=== PATIENT | male | born 1980 | race Caucasian/White ===

== ENCOUNTER 2023-02-02 14:21 | Outpatient (REF) | payer MEDICAID, SELFPAY ==
[2023-02-02 16:07] LABS: MANUAL DIFF FLAG NO
[2023-02-02 16:24] LABS: Basophils Percent Auto 0.5 % (0-2); Eosinophils Absolute Auto 0.2 X10*3/uL (0.0-0.4); Eosinophils Percent Auto 3.4 % (0-4); Hemoglobin 11.1 g/dl (14.0-18.0); Imm Gran Abs Auto 0.03 X10*3/uL (0.00-0.03); Imm Gran Pct Auto 0.5 % (0.0-0.4); Immature Retic Fraction 28.9 % (2.3-13.4); Lymphocytes Absolute Auto 1.1 X10*3/uL (1.2-4.9); Lymphocytes Percent Auto 19.2 % (20-40); Mean Corpuscular HGB Conc 30.8 g/dl (31.0-36.0); Mean Corpuscular Hemoglobin 23.8 pg (27.0-33.0); Mean Corpuscular Volume 77.3 fL (80.0-98.0); Mean Platelet Volume 11.3 fL (9.4-12.4); Monocytes Absolute Auto 0.7 X10*3/uL (0.1-1.2); Monocytes Percent Auto 11.7 % (2-11); Neutrophils Absolute Auto 3.8 x10*3/uL (2.0-8.3); Neutrophils Percent Auto 64.7 % (45-73); Platelet Count 171 X10*3/uL (160-400); Red Blood Count 4.66 X10*6/uL (4.60-5.80); Red Cell Distribution Width 16.6 % (11.0-16.0); Reticulocyte Percent 1.7 % (0.5-1.8); Reticulocytes Absolute 0.078 X10*6/uL (0.026-0.095); White Blood Count 5.8 X10*3/uL (4.8-10.8)
[2023-02-02 16:28] LABS: INTERNATIONAL NORM RATIO 0.9 (0.9-1.1)
[2023-02-02 17:30] LABS: Folate 13.5 ng/mL (> or = 4.0); Vitamin B12 665 pg/mL (200-900)
[2023-02-02 18:57] LABS: CT PCR NOT DETECTED (Not Detect.); NG PCR NOT DETECTED (Not Detect.)
[2023-02-02 19:26] LABS: Alanine Aminotransferase 31 U/L (0-40); Albumin Level 3.5 g/dL (3.5-5.0); Alkaline Phosphatase 77 U/L (39-117); Anion Gap 13 (12-20); Aspartate Amino Transferase 36 U/L (5-37); Bilirubin Total 0.3 mg/dL (0.0-1.0); Blood Urea Nitrogen 9 mg/dL (9-16); Calcium 8.9 mg/dL (8.4-10.2); Carbon Dioxide 27 mmol/L (22-29); Chloride 107 mmol/L (96-108); Estimated Glomerular Filt Rate > 60; Glucose Random 114 mg/dL (60-115); Iron 30 mcg/dL (45-160); Percent Iron Saturation 11 % (15-50); Potassium 3.5 mmol/L (3.3-5.1); Sodium 143 mmol/L (135-145); Total Iron Binding Capacity 272 mcg/dL (228-428); Total Protein 6.6 g/dL (6.5-8.0); Unsaturated Iron Binding 242 ug/dL
[2023-02-02 19:39] LABS: Ferritin 52 ng/mL (20-250)
[2023-02-03 09:14] LABS: Hepatitis A Antibody IgG REACTIVE (Nonreactive); ~Hepatitis A Antibody IgG 1.02 S/CO (0.00-0.99)
[2023-02-03 09:27] LABS: Syphilis Screen Nonreactive (Nonreactive)
[2023-02-03 09:35] LABS: HBS Num1 0.18 mIU/mL (0-7.99); HBc Num1 0.15 S/CO (0.00-0.79); HBsAGNum1 0.35 S/CO (0.00-0.99); HIV AB/AG Nonreactive (Nonreactive); HIV Num 1 0.05 S/CO (0.00-0.99); Hepatitis B Core Antibody Nonreactive (Nonreactive); Hepatitis B Surface Antigen Negative (Negative); ~Hepatitis B Surface Antibody NONREACTIVE (Nonreactive)
[2023-02-03 09:47] LABS: ~HepC Num1 0.22 S/CO (0.00-0.79); ~Hepatitis C Antibody Nonreactive (Nonreactive)
[2023-02-06 11:03] LABS: TS Negative Control Passed; TS Panel A 0; TS Panel B 2; TS Positive Control Passed; TSpotTB Negative (Negative)
== END 2023-02-02 14:22 | disposition home or self-care (01) ==
LOC: HO.HHCL 14:21
PROVIDERS: Visit Provider Emergency Medicine
DX: F11.20 Opioid dependence, uncomplicated (principal); Z20.2 Contact with and (suspected) exposure to infections with a predominantly sexual mode of transmission
CPT/HCPCS: 0353U; 80053; 82607; 82728; 82746; 83540; 85025; 85045; 85610; 86481; 86704; 86706; 86708; 86780; 86803; 87340; 87389

== ENCOUNTER 2023-08-29 16:39 | Emergency (ER) | payer MEDICAID, SELFPAY ==
--- NOTE | ~2023-08-29 | CT_ITS ---
EXAMINATION: CT HEAD WITHOUT CONTRAST CT CERVICAL SPINE WITHOUT CONTRAST CLINICAL INFORMATION: Headache. Neck pain. Hypertension. COMPARISON: None TECHNIQUE: Contiguous axial imaging was performed from the skull base to vertex without intravenous administration of contrast. Contiguous axial imaging was performed from the upper chest through the skull base without intravenous administration of contrast. Coronal and sagittal reformats were obtained at the acquisition workstation. This CT examination was performed using dose optimization techniques as appropriate, variously including the following: *Automated exposure control. *Adjustment of mA and/or kV according to patient size (this includes techniques or standardized protocols for targeted exams where dose is matched to indication/reason for exam, i.e., extremities or head). *Use of iterative reconstruction technique. DLP: 800 mGy-cm FINDINGS: Head: There is no evidence of acute intracranial hemorrhage or edematous territorial infarction. Ramirez-white matter differentiation is preserved. There is no abnormal attenuation within the brain parenchyma. The ventricles are normal in morphology and size. No evidence for obstructive hydrocephalus. No abnormal mass effect or midline shift. No extra-axial fluid collections. Remote appearing deformity of the right nasal bone. No acute soft tissue or osseous abnormalities. The mastoid air cells and paranasal sinuses are clear. Cervical Spine: The atlantooccipital and atlantoaxial articulations remain well aligned. Straightening of the normal cervical lordosis. Otherwise, there is anatomic alignment of the vertebral bodies and posterior elements. No evidence of acute fracture or subluxation. The vertebral body heights are maintained. Mild intervertebral disc space narrowing at C5-C6. Mild facet arthropathy at C5-C6 There is no prevertebral soft tissue swelling. The thyroid gland and remaining cervical soft tissues are within normal limits. The lung apices demonstrate no abnormalities. CT/CT cervical spine wo IV con IMPRESSION: 1. No acute intracranial pathology. 2. No acute fracture or traumatic subluxation involving the cervical spine. Mild degenerative changes at C5-C6.
[2023-08-29 17:33] VITALS: BP 196/135; PULSE 84; RESP 20; TEMP 36.8; O2SAT 95; BMI 45.6
--- NOTE | 2023-08-29 17:34 | ED_ITS ---
HPI - General Adult General Chief complaint: Headache Stated complaint: sent by [facility] for high BP Time Seen by Provider: 08/29/23 19:52 Source: patient Mode of arrival: ambulatory Limitations: no limitations History of Present Illness HPI narrative: 43-year-old male history of hypertension noncompliant with meds presents to ED for headache since Sunday. Patient went to primary care provider who found patient to have elevated blood pressure systolic about 200. Patient states has not taken his lisinopril since last year. Patient denies any chest pain, shortness of breath, slurred speech, facial droop, paralysis of extremities, or loss of vision. Patient denies any dizziness. Related Data Previous Rx's ?Medication ?Instructions ?Recorded hydrochlorothiazide 25 mg tablet 25 mg PO DAILY 30 days #30 tabs 08/30/23 lisinopril 10 mg tablet 20 mg (2 x 10 mg) PO BID 30 days 08/30/23 #120 tabs Allergies Allergy/AdvReac Type Severity Reaction Status Date / Time No Known Allergies Allergy Unverified 02/12/20 19:50 [No Known Allergies*] Review of Systems 2 Review of Systems: Headache elevated blood pressure Yes all other systems are reviewed and are negative [facility] Social History Social History Smoked in Last 30 Days: Yes Use of substances other than those prescribed or required for medical reasons: No Advance Directives: No Advance Directives Information Provided: No Physical Exam ED Vital Signs: Vital Signs - 24 hr 08/29/23 17:33 08/29/23 19:53 08/29/23 21:14 Temperature 98.2 F 98.9 F 98.0 F Pulse Rate 84 99 89 Respiratory Rate 20 18 20 Blood Pressure 196/135 H 195/119 H 163/98 H Pulse Oximetry 95 96 95 Oxygen Delivery Method Room Air Room Air Room Air 08/30/23 00:43 08/30/23 01:26 Temperature 98.3 F 98.0 F Pulse Rate 66 68 Respiratory Rate 18 18 Blood Pressure 161/110 H 152/98 H Pulse Oximetry 94 98 Oxygen Delivery Method Room Air Room Air BMI result Body Mass Index 45.6 Const General: cooperative, healthy appearing, comfortable, no acute distress, well developed, alert, awake and Physically active Orientation/consciousness: oriented to person, oriented to place, oriented to time and patient oriented x3 HENMT Head: Yes normal to inspection, Yes No palpable skull fracture present, Yes normocephalic, Yes atraumatic and No abrasion Eyes General: appearance normal, both eyes and all related structures Neck Neck: Yes normal visual inspection, Yes full ROM, Yes no lymphadenopathy, Yes no meningeal signs, Yes trachea midline, Yes supple, No anterior neck swelling and No tender Chest Chest palpation & inspection: normal inspection of the chest and normal palpation of entire chest wall Resp Effort & Inspection: normal respiratory effort and able to speak in complete sentences Auscultation: clear to auscultation bilaterally Cardio Jugular venous distension: no JVD Heart sounds: S1 normal heart sound present and S2 normal heart sound present GI Inspection: Yes normal to inspection Palpation (GI): Soft to palpation, not firm, nontender, no guarding and not rigid General: No CVA tenderness and Yes no CVA tenderness Back/Spine/Pelvis Back: no CVA tenderness, No CVA tenderness and No back tenderness Skin General skin exam: no rashes or lesions noted, elasticity normal and turgor normal Neuro General: oriented to person, oriented to place, oriented to time, patient oriented x3, gait normal, tone normal, moves all extremities, Normal light touch and pain sensation, no meningeal signs, no focal motor deficits, CN's II-XI intact bilaterally and normal sensation to monofilament NIH Stroke Scale Internal: Initial- Upon Arrival Level of Consciousness: Alert Level of Consciousness Questions: Answers both questions correctly Level of Consciousness Commands: Performs both tasks correctly Best Gaze: Normal Visual: No visual loss Facial Palsy: Normal Motor Arm (Right): No drift Motor Arm (Left): No drift Motor Leg (Right): No drift Motor Leg (Left): No drift Limb Ataxia: Absent Sensory: Normal Best Language: No aphasia Dysarthia: Normal Extinction and Inattention: No abnormality Score: 0 Course Course Course Narrative: This is an RME: Additional HPI, ROS, PE not included below will be deferred to primary provider. This is a [id number], with a hx of HTN, presenting to the ER with complaints of headache and HTN. Reporting intermittent headaches x several days. BP was 191/147, BP 183/129. was sent over from [facility], previously on lisinopril but has not been taking this medication. Plan: Labs, CT head/neck Medications Administered Discontinued Medications Generic Name Dose Route Start Last Admin Trade Name Freq PRN Reason Stop Dose Admin Clonidine HCl 0.2 mg 08/29/23 20:03 08/29/23 20:16 Clonidine Hcl 0.2 Mg Tablet PO 08/29/23 20:04 0.2 mg ONCE ONE Administration Protocol Medical Decision Making Medical Decision Making [facility] Narrative: 43-year-old male history of high blood pressure noncompliant with medication presents to the ED for headache and hypertension. Systolic over 190 diastolic over 110. NIH score is 0. Negative for signs of stroke. Head CT scan normal. We will do EKG and troponin. Kidney function normal. Hypertensive urgency. Clonidine ordered. RME: 12:58am: Patient's blood pressure improved with clonidine. Headache resolved. Two troponins negative. Head CT scan negative for stroke. Renal labs normal. Patient to be discharged with high blood pressure medication informed to follow-up with primary care provider. Patient explained worrisome signs that were informed to return to the ED for has not. NIH score 0 Differential Diagnosis Differential Diagnoses: The differential diagnosis associated with the presentation includes (Hypertensive emergency, stroke, myocardial infarction, renal failure,) Admission/Observation Consideration of admission/observation: Escalation of care including admission/observation considered Lab Data [facility] Lab Attestation statement: I reviewed the patient's lab results. 08/29/23 18:17 08/29/23 18:17 Labs: Lab Results 08/29/23 08/29/23 08/29/23 Range/Units 18:17 20:15 23:47 WBC 7.8 (4.8-10.8) X10*3/uL RBC 6.38 H D (4.60-5.80) X10*6/uL Hgb 15.3 D (14.0-18.0) g/dl Hct 48.1 D (42.0-52.0) % MCV 75.4 L (80.0-98.0) fL MCH 24.0 L (27.0-33.0) pg MCHC 31.8 (31.0-36.0) g/dl RDW 16.8 H (11.0-16.0) % Plt Count 193 (160-400) X10*3/uL MPV 9.9 (9.4-12.4) fL Immature Gran % (Auto) 0.5 H (0.0-0.4) % Neut % (Auto) 70.4 (45-73) % Lymph % (Auto) 19.4 L (20-40) % [place] % (Auto) 7.8 (2-11) % Eos % (Auto) 1.4 (0-4) % Baso % (Auto) 0.5 (0-2) % Lymph # (Auto) 1.5 (1.2-4.9) X10*3/uL [place] # (Auto) 0.6 (0.1-1.2) X10*3/uL Eos # (Auto) 0.1 (0.0-0.4) X10*3/uL Baso # (Auto) 0.0 (0.0-0.2) X10*3/uL Abs Immat Gran (auto) 0.04 H (0.00-0.03) X10*3/uL Absolute Neuts (auto) 5.5 (2.0-8.3) x10*3/uL Absolute Nucleated RBC 0.000 (0.0-0.012) X10*3/uL Nucleated RBC % (auto) 0.0 (0.0-0.2) /100WBC Sodium 141 (135-145) mmol/L Potassium 3.7 (3.3-5.1) mmol/L Chloride 106 (96-108) mmol/L Carbon Dioxide 25 (22-29) mmol/L Anion Gap 14 (12-20) BUN 14 (9-16) mg/dL Creatinine 0.97 (0.5-1.4) mg/dL Estim Creat Clear Calc 131.2 Estimated GFR > 60 Random Glucose 105 (60-115) mg/dL Calcium 9.1 (8.4-10.2) mg/dL Total Bilirubin 0.4 (0.0-1.0) mg/dL Direct Bilirubin 0.1 (0.0-0.5) mg/dL AST 19 (5-37) U/L ALT 25 (0-40) U/L Alkaline Phosphatase 96 (39-117) U/L Troponin I High Sens 5.3 7.2 (<3.5-35.0) ng/L Total Protein 7.7 (6.5-8.0) g/dL Albumin 4.0 (3.5-5.0) g/dL Influenza Type A (PCR) NEGATIVE (Negative) Influenza Type B (PCR) NEGATIVE (Negative) RSV RNA Qual (PCR) NEGATIVE (Negative) SARS-CoV-2 RNA (RT-PCR) NEGATIVE (Negative) Independent Interpretation I performed an independent interpretation of an: EKG (Normal sinus) and CT Scan Radiology Impression Discussion of test interpretation with radiology: I have reviewed the radiologist's reading. External Record Review External record reviewed: Other (Prior visits) Critical Care Time Critical Care Time Critical Care Time: Yes Total Critical Care Time: 60 Attestation: hypertensive. EKG troponin and clonidine ordered. Neuro exam performed. Discharge Plan Discharge Clinical Impression: Hypertension Patient Disposition: Home, Self-Care Instructions: Heart Healthy Diet (ED), Hypertensive Crisis (ED), Hypertension (ED) Additional Instructions: You will be discharged with hypertensive medication. Return to the ED immediately for any headache, nausea, vomiting, slurred speech, facial droop, chest pain, shortness of breath, paralysis of extremities, loss of vision, or any other concerning symptoms. Follow-up with primary care provider tomorrow Prescriptions: New lisinopril 10 mg tablet 20 mg PO BID 30 Days Qty: 120 0RF hydrochlorothiazide 25 mg tablet 25 mg PO DAILY 30 Days Qty: 30 0RF Stand Alone Forms: Work/School Release Interventions: ED Discharge Assessment Last Done: 08/30/23 01:26 Discharge Date/Time: 08/30/23 01:30 Print Language: Nepali
[2023-08-29 18:23] LABS: MANUAL DIFF FLAG NO
[2023-08-29 18:27] LABS: Basophils Percent Auto 0.5 % (0-2); Eosinophils Absolute Auto 0.1 X10*3/uL (0.0-0.4); Eosinophils Percent Auto 1.4 % (0-4); Hematocrit 48.1 % (42.0-52.0); Hemoglobin 15.3 g/dl (14.0-18.0); Imm Gran Abs Auto 0.04 X10*3/uL (0.00-0.03); Imm Gran Pct Auto 0.5 % (0.0-0.4); Lymphocytes Absolute Auto 1.5 X10*3/uL (1.2-4.9); Lymphocytes Percent Auto 19.4 % (20-40); Mean Corpuscular HGB Conc 31.8 g/dl (31.0-36.0); Mean Corpuscular Volume 75.4 fL (80.0-98.0); Mean Platelet Volume 9.9 fL (9.4-12.4); Monocytes Absolute Auto 0.6 X10*3/uL (0.1-1.2); Monocytes Percent Auto 7.8 % (2-11); Neutrophils Absolute Auto 5.5 x10*3/uL (2.0-8.3); Neutrophils Percent Auto 70.4 % (45-73); Platelet Count 193 X10*3/uL (160-400); Red Blood Count 6.38 X10*6/uL (4.60-5.80); Red Cell Distribution Width 16.8 % (11.0-16.0); White Blood Count 7.8 X10*3/uL (4.8-10.8)
[2023-08-29 18:37] LABS: Alanine Aminotransferase 25 U/L (0-40); Alkaline Phosphatase 96 U/L (39-117); Anion Gap 14 (12-20); Aspartate Amino Transferase 19 U/L (5-37); Bilirubin Direct 0.1 mg/dL (0.0-0.5); Bilirubin Total 0.4 mg/dL (0.0-1.0); Blood Urea Nitrogen 14 mg/dL (9-16); Calcium 9.1 mg/dL (8.4-10.2); Carbon Dioxide 25 mmol/L (22-29); Chloride 106 mmol/L (96-108); Creatinine Clr Calc Pharmacy 131.2; Estimated Glomerular Filt Rate > 60; Glucose Random 105 mg/dL (60-115); Potassium 3.7 mmol/L (3.3-5.1); Sodium 141 mmol/L (135-145); Total Protein 7.7 g/dL (6.5-8.0)
[2023-08-29 19:01] LABS: Influenza A PCR NEGATIVE (Negative); Influenza B PCR NEGATIVE (Negative); Resp Syncy Virus RNA Qual PCR NEGATIVE (Negative); SARS COV2 PCR INHOUSE NEGATIVE (Negative)
[2023-08-29 19:53] VITALS: BP 195/119; PULSE 99; RESP 18; TEMP 37.2; O2SAT 96
--- NOTE | 2023-08-29 19:53 | ECG_ITS ---
Test Reason : HTN CRISIS Blood Pressure : / mmHG Vent. Rate : 087 BPM Atrial Rate : 087 BPM P-R Int : 176 ms QRS Dur : 098 ms QT Int : 404 ms P-R-T Axes : 000 146 174 degrees QTc Int : 486 ms Normal sinus rhythm Right axis deviation Anterior infarct , age undetermined ST & T wave abnormality, consider inferior ischemia Abnormal ECG No previous ECGs available Referred By: Dileep Lang Electronically Signed By:EDE PHELAN MD
--- NOTE | 2023-08-29 20:06 | PC.NURSE ---
pt from home, a&ox4, respirations even and unlabored, reports increasing headache x2 days. pt reports being seen at [facility] and being sent to [facility] for high blood pressure. pt reports headache is throbbing and in the back of the head. pt hypertensive upon arrival to the [facility] and arrival into ed room 15. Dileep VIERA at bedside. EKG obtained. neuro assessment in tact. pt sinus tachy on tele 103-108.
[2023-08-29] MEDS: cloNIDine HCL 0.2 MG TABLET PO (20:16)
--- NOTE | 2023-08-29 20:17 | PC.NURSE ---
pt medicated per mar, pt tolerated well with water.
[2023-08-29 20:41] LABS: Troponin-I High Sensitivity 5.3 ng/L (<3.5-35.0)
[2023-08-29 21:14] VITALS: BP 163/98; PULSE 89; RESP 20; TEMP 36.7; O2SAT 95
[2023-08-30 00:13] LABS: Troponin-I High Sensitivity 7.2 ng/L (<3.5-35.0)
[2023-08-30 00:43] VITALS: BP 161/110; PULSE 66; RESP 18; TEMP 36.8; O2SAT 94
[2023-08-30 01:26] VITALS: BP 152/98; PULSE 68; RESP 18; TEMP 36.7; O2SAT 98
== END 2023-08-30 01:30 | disposition home or self-care (01) ==
PROVIDERS: Physician Assistant; Physician Assistant Medical; Emergency Provider Internal Medicine
DX: I10 Essential (primary) hypertension (principal); Z91.148 Patient's other noncompliance with medication regimen for other reason
CPT/HCPCS: 0241U; 36415; 70450; 72125; 80048; 80076; 84484; 85025; 93005; 99284; 99285

== ENCOUNTER → 2023-08-29 19:53 | Outpatient (BNV) | payer MEDICAID, SELFPAY | PROVIDERS: Emergency Provider Internal Medicine; Visit Provider Internal Medicine Cardiovascular Disease | DX: R94.31 Abnormal electrocardiogram [ECG] [EKG] (principal) | CPT/HCPCS: 93010 ==

== ENCOUNTER 2023-10-05 15:59 | Outpatient (REF) | payer MEDICAID, SELFPAY | END 2023-10-05 16:00 | disposition home or self-care (01) | LOC: HO.HHCL 15:59 | PROVIDERS: Visit Provider Internal Medicine Geriatric Medicine | DX: Z13.89 Encounter for screening for other disorder (principal) ==

== ENCOUNTER 2023-11-16 16:48 | Emergency (ER) | payer MEDICAID, SELFPAY ==
[2023-11-16 16:59] VITALS: BP 192/113; PULSE 61; RESP 18; TEMP 36.7; O2SAT 97; BMI 44.2
--- NOTE | 2023-11-16 17:00 | ED_ITS ---
HPI - General Adult General Chief complaint: General Medical Stated complaint: High blood pressure Time Seen by Provider: 11/16/23 18:37 Source: patient Mode of arrival: ambulatory Limitations: no limitations History of Present Illness HPI narrative: This is a 43-year-old man with a past medical history of hypertension who presents for evaluation. Patient was recommended to come to the emergency room at his outpatient clinic for evaluation of elevated blood pressure. He reports that he has not been taking his blood pressure medications consistently. He states that they noted his blood pressure was elevated and he should come to the emergency room for evaluation. He states he initially went to his outpatient clinic because he only had a few pills of his blood pressure medication left and he wanted a refill. He states that they did not refill it and sent him here for evaluation. He states no headache, vision changes, vision loss, speech changes, paresthesias, neck pain, chest pain, dyspnea, abdominal pain, back pain, changes in bowel habits or urinary symptoms. Related Data Previous Rx's ?Medication ?Instructions ?Recorded hydrochlorothiazide 25 mg tablet 25 mg PO DAILY 30 days #30 tabs 08/30/23 lisinopril 10 mg tablet 20 mg (2 x 10 mg) PO BID 30 days 08/30/23 #120 tabs lisinopril 20 mg tablet 20 mg PO BID 14 days #28 tabs 11/16/23 lisinopril 20 mg tablet 20 mg PO BID 14 days #28 tabs 11/16/23 lisinopril 20 mg tablet 20 mg PO BID 30 days #60 tabs 11/16/23 Allergies Allergy/AdvReac Type Severity Reaction Status Date / Time No Known Allergies Allergy Verified 11/16/23 17:00 [No Known Allergies*] Review of Systems 2 Review of Systems: ROS as per [facility] Social History Social History (System 09/13/23 @ 14:27 by Ellie Whiting) Advance Directives: No Advance Directives Information Provided: No Do you have a plan to hurt others: No Plan Physical Exam ED Vital Signs: Vital Signs - 24 hr 11/16/23 16:59 11/16/23 18:25 Temperature 98.0 F 98.5 F Pulse Rate 61 61 Respiratory Rate 18 18 Blood Pressure 192/113 H 169/108 H Pulse Oximetry 97 97 Oxygen Delivery Method Room Air Room Air BMI result Body Mass Index 44.2 Gen: NAD, AOx3 HEENT: NCAT, EOMI, normal conjunctiva CV: RRR Pulm: CTAB, no increased work of breathing GI: Soft, NTND, no rebound, guarding or rigidity Neuro: Grossly non focal Course Course Course Narrative: RME performed by Hayley Ballard PA-C. Patient is a 43 year old assigned male at presenting to the emergency department with a headache and high blood pressure. Patient states his blood pressure has been much higher lately and he is having intermittent headaches. Detailed physical exam and review of systems are deferred to the behavioral health clinician. EKG and labs ordered. Patient placed back in the waiting room pending room availability and results. Medical Decision Making Medical Decision Making [facility] Narrative: Differential diagnosis includes, but is not limited to uncontrolled established hypertension, asymptomatic hypertension, hypertensive urgency. This is not hypertensive emergency (patient is asymptomatic without evidence of end-organ damage) Exam is benign and reassuring. I reviewed and interpreted blood work and urine studies, which are noncontributory. I reviewed and interpreted EKG, which is unremarkable for any acute findings. Patient tested negative for COVID-19, influenza and RSV. I provided patient with counseling regarding tobacco cessation techniques to quit smoking including use of nicotine patch and as needed nicotine gum/lozenge. I provided patient with counseling regarding risks of not consistently taking his blood pressure medication including, but not limited to stroke, heart attack and kidney failure. On re-examination, patient is well-appearing and in no acute distress. ?There is no indication for further emergent evaluation in this otherwise well-appearing patient as above. ?Patient is provided written and verbal instructions, educational materials, recommendations for outpatient follow-up to continue monitoring his blood pressure and titrating his anti-hypertensives to goal blood pressure, prescription for lisinopril, strict return precautions and teach back is performed. ?Patient states understanding and agreement with plan of care. ?Patient is discharged home in stable and improved condition. Admission/Observation Consideration of admission/observation: Escalation of care including admission/observation considered Lab Data [facility] Lab Attestation statement: I reviewed the patient's lab results. 11/16/23 17:25 11/16/23 17:25 Labs: Lab Results 11/16/23 11/16/23 Range/Units 17:25 18:29 WBC 7.9 (4.8-10.8) X10*3/uL RBC 5.83 H (4.60-5.80) X10*6/uL Hgb 15.0 (14.0-18.0) g/dl Hct 45.4 (42.0-52.0) % MCV 77.9 L (80.0-98.0) fL MCH 25.7 L (27.0-33.0) pg MCHC 33.0 (31.0-36.0) g/dl RDW 14.6 (11.0-16.0) % Plt Count 198 (160-400) X10*3/uL MPV 10.1 (9.4-12.4) fL Immature Gran % (Auto) 0.4 (0.0-0.4) % Neut % (Auto) 69.5 (45-73) % Lymph % (Auto) 19.0 L (20-40) % Reagan % (Auto) 8.0 (2-11) % Eos % (Auto) 2.3 (0-4) % Baso % (Auto) 0.8 (0-2) % Lymph # (Auto) 1.5 (1.2-4.9) X10*3/uL Reagan # (Auto) 0.6 (0.1-1.2) X10*3/uL Eos # (Auto) 0.2 (0.0-0.4) X10*3/uL Baso # (Auto) 0.1 (0.0-0.2) X10*3/uL Abs Immat Gran (auto) 0.03 (0.00-0.03) X10*3/uL Absolute Neuts (auto) 5.5 (2.0-8.3) x10*3/uL Absolute Nucleated RBC 0.000 (0.0-0.012) X10*3/uL Nucleated RBC % (auto) 0.0 (0.0-0.2) /100WBC Sodium 140 (135-145) mmol/L Potassium 3.9 (3.3-5.1) mmol/L Chloride 108 (96-108) mmol/L Carbon Dioxide 24 (22-29) mmol/L Anion Gap 11 L (12-20) BUN 11 (9-16) mg/dL Creatinine 0.75 (0.5-1.4) mg/dL Estim Creat Clear Calc 171.9 Estimated GFR > 60 Random Glucose 87 (60-115) mg/dL Calcium 9.1 (8.4-10.2) mg/dL Magnesium 2.2 (1.6-2.6) mg/dL Total Bilirubin 0.3 (0.0-1.0) mg/dL AST 14 (5-37) U/L ALT 12 (0-40) U/L Alkaline Phosphatase 71 (39-117) U/L Troponin I High Sens < 2.7 D (<3.5-35.0) ng/L Total Protein 7.1 (6.5-8.0) g/dL Albumin 4.0 (3.5-5.0) g/dL Urine Color Yellow Urine Appearance Clear Urine pH 5.0 (5.0-9.0) Ur Specific [place] 1.020 (1.005-1.025) Urine Protein Negative (Neg-Trace) mg/dL Urine Glucose (UA) Negative (Negative) mg/dL Urine Ketones Negative (Negative) mg/dL Urine Blood Negative (Negative) Urine Nitrite Negative (Negative) Ur Leukocyte Esterase Negative (Negative) Influenza Type A (PCR) NEGATIVE (Negative) Influenza Type B (PCR) NEGATIVE (Negative) RSV RNA Qual (PCR) NEGATIVE (Negative) SARS-CoV-2 RNA (RT-PCR) NEGATIVE (Negative) Independent Interpretation I performed an independent interpretation of an: EKG Interpretation: EKG shows sinus rhythm at 62 beats per minute, HI 184, QRS 94, QTC 422, no ST depression/elevations, no STEMI (compared to prior EKG August 29, 2023 there are no diagnostic ischemic changes) Discharge Plan Discharge Clinical Impression: Hypertension Patient Disposition: Home, Self-Care Additional Instructions: You were seen and evaluated in the emergency room. Your vital signs were notable for elevated blood pressure Your blood work and urine studies were normal. You tested negative for COVID-19, influenza and RSV. Your EKG was normal. You are given a prescription for lisinopril (blood pressure medicine). Please take as directed. Please follow-up with your primary care doctor at your previously scheduled appointment on November 26, 2023. Please return to the emergency room if you develop any worsening symptoms including, but not limited to chest pain or difficulty breathing. ? Prescriptions: New lisinopril 20 mg tablet 20 mg PO BID 30 Days Qty: 60 0RF lisinopril 20 mg tablet 20 mg PO BID 14 Days Qty: 28 0RF lisinopril 20 mg tablet 20 mg PO BID 14 Days Qty: 28 0RF No Action lisinopril 10 mg tablet 20 mg PO BID 30 Days Qty: 120 0RF hydrochlorothiazide 25 mg tablet 25 mg PO DAILY 30 Days Qty: 30 0RF Print Language: Maltese
--- NOTE | 2023-11-16 17:01 | ECG_ITS ---
Test Reason : high bp Blood Pressure : / mmHG Vent. Rate : 062 BPM Atrial Rate : 062 BPM P-R Int : 184 ms QRS Dur : 094 ms QT Int : 416 ms P-R-T Axes : 037 021 006 degrees QTc Int : 422 ms Normal sinus rhythm Minimal voltage criteria for LVH, may be normal variant ( R in aVL ) Cannot rule out Anterior infarct , age undetermined Abnormal ECG When compared to the previous EKG of last ECG has limb leads reversal. Referred By: Hayley Ballard Electronically Signed By:Сергей Hensley
[2023-11-16 17:30] LABS: MANUAL DIFF FLAG NO
[2023-11-16 17:32] LABS: Basophils Absolute Auto 0.1 X10*3/uL (0.0-0.2); Basophils Percent Auto 0.8 % (0-2); Eosinophils Absolute Auto 0.2 X10*3/uL (0.0-0.4); Eosinophils Percent Auto 2.3 % (0-4); Hematocrit 45.4 % (42.0-52.0); Imm Gran Abs Auto 0.03 X10*3/uL (0.00-0.03); Imm Gran Pct Auto 0.4 % (0.0-0.4); Lymphocytes Absolute Auto 1.5 X10*3/uL (1.2-4.9); Mean Corpuscular Hemoglobin 25.7 pg (27.0-33.0); Mean Corpuscular Volume 77.9 fL (80.0-98.0); Mean Platelet Volume 10.1 fL (9.4-12.4); Monocytes Absolute Auto 0.6 X10*3/uL (0.1-1.2); Neutrophils Absolute Auto 5.5 x10*3/uL (2.0-8.3); Neutrophils Percent Auto 69.5 % (45-73); Platelet Count 198 X10*3/uL (160-400); Red Blood Count 5.83 X10*6/uL (4.60-5.80); Red Cell Distribution Width 14.6 % (11.0-16.0); White Blood Count 7.9 X10*3/uL (4.8-10.8)
[2023-11-16 17:57] LABS: Troponin-I High Sensitivity < 2.7 ng/L (<3.5-35.0)
[2023-11-16 18:12] LABS: Alanine Aminotransferase 12 U/L (0-40); Alkaline Phosphatase 71 U/L (39-117); Anion Gap 11 (12-20); Aspartate Amino Transferase 14 U/L (5-37); Bilirubin Total 0.3 mg/dL (0.0-1.0); Blood Urea Nitrogen 11 mg/dL (9-16); Calcium 9.1 mg/dL (8.4-10.2); Carbon Dioxide 24 mmol/L (22-29); Chloride 108 mmol/L (96-108); Creatinine Clr Calc Pharmacy 171.9; Estimated Glomerular Filt Rate > 60; Glucose Random 87 mg/dL (60-115); Magnesium 2.2 mg/dL (1.6-2.6); Potassium 3.9 mmol/L (3.3-5.1); Sodium 140 mmol/L (135-145); Total Protein 7.1 g/dL (6.5-8.0)
[2023-11-16 18:23] LABS: Influenza A PCR NEGATIVE (Negative); Influenza B PCR NEGATIVE (Negative); Resp Syncy Virus RNA Qual PCR NEGATIVE (Negative); SARS COV2 PCR INHOUSE NEGATIVE (Negative)
[2023-11-16 18:25] VITALS: BP 169/108; PULSE 61; RESP 18; TEMP 36.9; O2SAT 97
[2023-11-16 18:37] LABS: Appearance Urine Clear; Color Urine Yellow; Glucose Urine UA Negative (Negative); Leukocyte Esterase Urine Negative (Negative); Nitrite Urine Negative (Negative); Urine Blood Negative (Negative); Urine Ketones Negative (Negative); Urine Protein Negative (Neg-Trace)
[2023-11-16 19:25] VITALS: BP 169/108; PULSE 61; RESP 18; TEMP 36.9; O2SAT 97
== END 2023-11-16 19:26 | disposition home or self-care (01) ==
PROVIDERS: Physician Assistant Medical; Emergency Provider Emergency Medicine; PCP Nurse Practitioner Primary Care
DX: I10 Essential (primary) hypertension (principal); R94.31 Abnormal electrocardiogram [ECG] [EKG]; Z76.0 Encounter for issue of repeat prescription; Z03.818 Encounter for observation for suspected exposure to other biological agents ruled out; Z79.899 Other long term (current) drug therapy
CPT/HCPCS: 0241U; 80053; 81003; 83735; 84484; 85025; 93005; 99283; 99284

== ENCOUNTER → 2023-11-16 17:01 | Outpatient (BNV) | payer MEDICAID, SELFPAY | PROVIDERS: Emergency Provider Emergency Medicine; PCP Nurse Practitioner Primary Care; Visit Provider Internal Medicine Cardiovascular Disease | DX: R94.31 Abnormal electrocardiogram [ECG] [EKG] (principal) | CPT/HCPCS: 93010 ==

== ENCOUNTER 2024-01-10 14:37 | Outpatient (REF) | payer MEDICAID, SELFPAY ==
[2024-01-10 16:20] LABS: Anion Gap 14 (12-20); Blood Urea Nitrogen 15 mg/dL (9-16); Calcium 9.5 mg/dL (8.4-10.2); Carbon Dioxide 25 mmol/L (22-29); Chloride 106 mmol/L (96-108); Estimated Glomerular Filt Rate > 60; Glucose Random 129 mg/dL (60-115); Potassium 3.6 mmol/L (3.3-5.1); Sodium 141 mmol/L (135-145)
[2024-01-11 03:44] LABS: Syphilis Screen Nonreactive (Nonreactive)
[2024-01-11 04:02] LABS: ~HepC Num1 0.21 S/CO (0.00-0.79); ~Hepatitis C Antibody Nonreactive (Nonreactive)
== END 2024-01-10 14:38 | disposition home or self-care (01) ==
LOC: HO.HHCL 14:37
PROVIDERS: Referring Provider Nurse Practitioner Family; Visit Provider Internal Medicine Geriatric Medicine
DX: I10 Essential (primary) hypertension (principal); Z11.3 Encounter for screening for infections with a predominantly sexual mode of transmission
CPT/HCPCS: 36415; 80048; 86780; 86803; 87536

== ENCOUNTER 2024-06-04 16:45 | Emergency (ER) | payer MEDICAID, SELFPAY ==
[2024-06-04 17:22] VITALS: BP 135/87; PULSE 96; RESP 18; TEMP 37.1; O2SAT 90; BMI 40.8
--- NOTE | 2024-06-04 17:22 | ED.ALLEREA ---
HPI - Allergic Reaction General Chief complaint: Allergic Reaction Stated complaint: ? allergic reaction Time Seen by Provider: 06/04/24 19:40 Source: patient Mode of arrival: ambulatory Limitations: no limitations History of Present Illness ED Provider: Dr. Dimitrios Schuster HPI narrative: 44-year-old male history of hypertension on lisinopril and hydralazine who presents emergency department for evaluation of allergic reaction. He states that yesterday he developed a rash on his left biceps which was pruritic. Prior to coming to the emergency department the rash spread to both arms and to his back. Also developed swelling of both hands. He states that the rash is pruritic. Denied lightheadedness, dizziness, nausea, vomiting, difficulty swallowing, swelling of his lips or tongue, shortness of breath or dyspnea on exertion. Patient states that if he has not had an allergic reaction in the past. Related Data Previous Rx's ?Medication ?Instructions ?Recorded hydrochlorothiazide 25 mg tablet 25 mg PO DAILY 30 days #30 tabs 08/30/23 lisinopril 10 mg tablet 20 mg (2 x 10 mg) PO BID 30 days 08/30/23 #120 tabs lisinopril 20 mg tablet 20 mg PO BID 14 days #28 tabs 11/16/23 lisinopril 20 mg tablet 20 mg PO BID 14 days #28 tabs 11/16/23 lisinopril 20 mg tablet 20 mg PO BID 30 days #60 tabs 11/16/23 diphenhydramine HCl 25 mg capsule 50 mg (2 x 25 mg) PO Q6H PRN 06/04/24 headache, nausea, vomiting #20 caps famotidine 20 mg tablet 20 mg PO DAILY #14 tabs 06/04/24 prednisone 10 mg tablet 10 mg PO DIRECTED #60 tabs 06/04/24 Allergies Allergy/AdvReac Type Severity Reaction Status Date / Time No Known Allergies Allergy Verified 06/04/24 17:24 [No Known Allergies*] Review of Systems Review of Systems: Yes all other systems are reviewed and are negative [facility] Past Medical History [facility] Narrative: Social history: He does smoke cigarettes. He occasionally drinks alcohol. He denies drug Social History Social History (System 09/13/23 @ 14:27 by Ellie Whiting) Advance Directives: No Advance Directives Information Provided: No Do you have a plan to hurt others: No Plan Physical Exam ED Vital Signs: Vital Signs - 24 hr 06/04/24 17:22 06/04/24 20:30 06/04/24 20:35 Temperature 98.8 F 98.2 F 98.2 F Pulse Rate 96 71 71 Respiratory Rate 18 20 20 Blood Pressure 135/87 122/73 122/73 Pulse Oximetry 90 L 98 98 Oxygen Delivery Method Room Air Room Air Room Air BMI result Body Mass Index 40.8 Vital signs were normal. Exam: General: Awake, alert in no distress Head: Normocephalic, atraumatic EENT: PERRL, Lids normal, sclera normal, conjunctiva normal, nose normal , ears normal, throat without erythema or exudates Neck: Supple, no adenopathy Lung: breath sounds symmetric, no wheezing, rales or rhonchi Chest: symmetric movement, nontender Heart: regular rate and rhythm, normal S1, S2 no murmurs or rubs Abdomen: soft, non-tender, nondistended, normal bowel sounds Back: no vertebral tenderness, no CVAT Skin/extremities: Patient has an erythematous rash to his arms which blanches with pressure, rashes symmetric on both sides, patient has nonpitting edema of with no tenderness palpation of these areas. Patient also has an erythematous rash on his back. Neuro: Awake, alert, oriented, normal speech, cranial nerves intact, moves all extremities symmetrically Psych: Pleasant, cooperative Course Course Course Narrative: This is a Rapid Medical Exam performed in triage by Marixa May PA-C. Full HPI, ROS and PE to be performed by primary ED provider. 44yo M presenting to the ED c/o ?allergic reaction with body itching, bilateral hand swelling & rash. Denies known allergens. denies new exposures including soap/lotion, detergent, foods, medications PE: +bilateral hand swelling, +faint back erythema, uvula midline, talking in complete sentences Plan: IV Benadryl/Pepcid/Solumedrol Medications Administered Discontinued Medications Generic Name Dose Route Start Last Admin Trade Name Freq PRN Reason Stop Dose Admin Diphenhydramine HCl 50 mg 06/04/24 17:25 06/04/24 18:54 Diphenhydramine Hcl 50 Mg/Ml Vial IVPUSH 06/04/24 17:26 50 mg ONCE ONE Administration Famotidine 20 mg 06/04/24 17:25 06/04/24 18:55 Famotidine/Pf 20 Mg/2 Ml Vial IVPUSH 06/04/24 17:26 20 mg ONCE ONE Administration Methylprednisolone Sodium Succinate 60 mg 06/04/24 17:25 06/04/24 18:54 Methylprednisolone Sod Succ 125 Mg/2 Ml Vial IVPUSH 06/04/24 17:26 60 mg ONCE ONE Administration Medical Decision Making Medical Decision Making MDM Narrative: 44-year-old male history of hypertension on lisinopril and hydralazine who presents emergency department for evaluation of allergic reaction involving his arms, hands and back. The rash is erythematous and blanches with pressure, he also has symmetric swelling of his hands. He has no tongue, lip swelling and no shortness of breath, lightheadedness dizziness, nausea or vomiting. Differential diagnosis: ?Includes but is not limited to allergic reaction, angioedema Course: Reaction to an unknown allergen. Patient was treated Solu-Medrol 125 mg IV, Benadryl 50 mg IV and Pepcid 20 mg IV. The patient did feel better and he had some improvement of his rash. Patient was started on a prednisone taper starting at 60 mg x 5 days decrease by 10 mg every 2 days until completing a course of prednisone. He was also given a prescription for Pepcid 20 mg Benadryl 50 mg every 6 hours as needed for rash and pruritus. He was given printed and verbal instructions and discharged home. Admission/Observation Consideration of admission/observation: Escalation of care including admission/observation considered (Yes) Prescription Management I considered prescription management with: Other (Anti-inflammatory steroids: Prednisone, he was to means: Pepcid and Benadryl) Chronic Conditions Patient?s care impacted by: Hypertension Discharge Plan Discharge Clinical Impression: Allergic reaction, Urticaria Patient Disposition: Home, Self-Care Instructions: General Allergic Reaction (ED) Additional Instructions: Your skin rash, swelling in her hands and each in his is caused by an allergic reaction. Take prednisone 10 mg pills, 6 pills once a day for 5 days then decrease by 1 pill every 2 days until you complete the prescription. Take Pepcid (famotidine) 20 mg pills, 1 pill once a day for 2 weeks. This is a medication for your stomach but also treats allergic reactions. Take Benadryl (diphenhydramine) 25 mg pills, 2 pills every 6 hours as needed for itchiness. This medication will make you sleepy. Do not drive or work while taking this medication. You are giving a note to stay out of work for 4 days so that you can recover from this allergic reaction. Follow-up with your doctor in 2 days. Please return to the emergency department if your symptoms get worse or if you develop any symptoms that are concerning to you. Prescriptions: New prednisone 10 mg tablet 10 mg PO DIRECTED Qty: 60 0RF Rx Instructions: Day 1 through 5 take 6 pills then decrease by 1 pill every 2 days until you complete prescription famotidine 20 mg tablet 20 mg PO DAILY Qty: 14 0RF diphenhydramine HCl 25 mg capsule 50 mg PO Q6H PRN (Reason: headache, nausea, vomiting) Qty: 20 0RF No Action lisinopril 20 mg tablet 20 mg PO BID 30 Days Qty: 60 0RF lisinopril 20 mg tablet 20 mg PO BID 14 Days Qty: 28 0RF lisinopril 20 mg tablet 20 mg PO BID 14 Days Qty: 28 0RF lisinopril 10 mg tablet 20 mg PO BID 30 Days Qty: 120 0RF hydrochlorothiazide 25 mg tablet 25 mg PO DAILY 30 Days Qty: 30 0RF Stand Alone Forms: Work/School Release Interventions: ED Discharge Assessment Last Done: 06/04/24 20:35 Discharge Date/Time: 06/04/24 20:36 Print Language: Chinese
[2024-06-04] MEDS: methylPREDNISolone Sod Succ 125 MG/2 ML VIAL 60 MG IVPUSH (18:54)
[2024-06-04] MEDS: diphenhydrAMINE HCL 50 MG/ML VIAL IVPUSH (18:54)
[2024-06-04] MEDS: Famotidine/PF 20 MG/2 ML VIAL IVPUSH (18:55)
[2024-06-04 20:30] VITALS: BP 122/73; PULSE 71; RESP 20; TEMP 36.8; O2SAT 98
[2024-06-04 20:35] VITALS: BP 122/73; PULSE 71; RESP 20; TEMP 36.8; O2SAT 98
== END 2024-06-04 20:36 | disposition home or self-care (01) ==
PROVIDERS: Emergency Provider Emergency Medicine Emergency Medical Services; PCP Nurse Practitioner Primary Care
DX: L50.0 Allergic urticaria (principal); Z79.899 Other long term (current) drug therapy
CPT/HCPCS: 96374; 96375; 99283; 99284; J1200; J2919

== ENCOUNTER 2024-07-04 11:58 | Outpatient (REF) | payer MEDICAID, SELFPAY ==
--- OUTSIDE RECORDS SUMMARY | 2024-07-04 13:02 | XMS_ITS | Encounter Summary ---
Author Organization [employer] Address [address] [place] [address] Care Team Providers Care Telephone Lineman Name Role Phone Name, Regan ORTEGA Primary Care Provider [phone] Renato Fermin RN Unavailable [phone] Reason for Visit * Reason Comments Recovery Supports Encounter Details Date Type Department Care Team ([facility] st Contact Info) Description 06/23/2024 Patient Outreach [facility] [address] [place] [address] Jin Mars [address] [place] [address] Recovery Supports Social History Tobacco Use Types Packs/Day Years Used Date Smoking Tobacco: Every Day Cigarettes Smokeless Tobacco: Never Alcohol Use Standard Drinks/Week Comments Never 0 (1 standard drink = 0.6 oz pur e alcohol) Alcohol Answer Date Recorded How often do you have a drink containing alcohol ? 1 05/02/2024 How many drinks containing a lcohol do you have on a typical day when you are drinking? 0 05/02/2024 How often do you have six or more drinks on one occasion? 1 05/02/2024 Depression Answer Date Recorded Patient Health Questionnaire-9 Score 11 05/02/2024 Patient Health Questionnaire-9 Score 11 05/02/2024 Last PHQ-9: Questionnaire Data Not on file 1 07/03/2023 Housing Stability Answer Date Recorded What is your housing situation today? I have silvia simmons 06/19/[address] you li ve. Do you have problems with any of the following? None of the above 06/19/2024 Food Insecurity Answer Date Recorded Within the past 12 months, y ou worried that your food would run out before you got money to buy more: Never True 06/19/2024 Within the past 12 months,th e food you bought just didn't last and you didn't have enough money to get more: Never True Transportation Answer Date Recorded In the past 12 months, has l ack of transportation kept you from medical appts, meetings, work or from getting things needed for daily living? I am not sure 06/19/2024 Utilities Answer Date Recorded In the past 12 months, has t he electric, gas, oil or water company threatened to shut off services in your home? No 06/19/2024 Depression Answer Date Recorded Patient Health Questionnaire-2 Score 1 05/02/2024 Internet Access Answer Date Recorded Internet Access Q1 Yes 06/19/2024 Internet Access Q2 Not on file 06/19/2024 Sex and Gender Information Value Date Recorded Sex Assigned at Male 01/31/2023 10:59 AM EDT Legal Sex Male 2:59 PM EDT Gender Identity Male 01/31/2023 10:59 AM EDT Sexual Orientation Straight 01/31/2023 10 :59 AM EDT documented as of this encounter Progress Notes * Jin Mars - 06/23/2024 10:19 AM EST I met with Papo cazares. Setting: in person at [facility] Recovery Wellness Goals worked on: Financial Stability Action taken/next steps: Facilitated access to technology resources (computer support) Additional comments: Jin Mars documented in this encounter Plan of Treatment Upcoming Encounters Date Type Department Care Team (Late st Contact Info) Description 07/10/2024 2:30 PM EST Telemedicine [address] [phone] 07/11/2024 10:00 AM EST Clinical Support [address] [address] Ellie Lu, PURA documented as of this encounter Visit Diagnoses Not on filedocumented in this encounter Additional Health Concerns Assessment Noted Time PHQ-9 Depression Total Score: 11 024 3:17 PM EST documented as of this encounter Care Teams Telephone Lineman Relationship Specialty Start Date End Date Name, MD Regan [address] [place] [id number] PCP - General Internal Medicine 11/26/23 Renato Fermin RN [address] [place] [address] CAR Sykes [phone] It Business Systems AnalystPsych Nurse 06/18/24 documented as of this encounter
--- OUTSIDE RECORDS SUMMARY | 2024-07-04 13:02 | XMS_ITS | Encounter Summary ---
Author Organization [employer] [facility] Address [address] [place] [address] Care Team Providers Care Client Finance Analyst Name Role Phone Name, Regan ORTEGA Primary Care Provider [phone] Renato Fermin RN Unavailable [phone] Encounter Details Date Type Department Care Team (Latest Contact Info) Description 07/02/2024 Travel Social History Tobacco Use Types Packs/Day Years [...] AM EDT documented as of this encounter Plan of Treatment Upcoming Encounters Date Type Department Care Team (Late st Contact Info) Description 07/10/2024 2:30 PM EST Telemedicine [address] [address] 07/11/2024 10:00 AM EST Clinical Support [address] [address] Ellie Lu, PURA documented as of this encounter Visit Diagnoses Not on filedocumented in this encounter Additional Health Concerns Assessment Noted Time PHQ-9 Depression Total Score: 11 024 3:17 PM EST documented as of this encounter Care Teams Client Finance Analyst Relationship Specialty Start Date End Date Name, MD Regan [address] [place] [address] PCP - General Internal Medicine 11/26/23 Renato Fermin, PURA [address] [place] [phone] Software Configuration AnalystLockstitch Front Maker 06/18/24 documented as of this encounter
--- OUTSIDE RECORDS SUMMARY | 2024-07-04 13:02 | XMS_ITS | Encounter Summary ---
Author Organization [employer] Address [address] [place] [address] Care Team Providers Care Church Communications Administrator Name Role Phone Name, Regan ORTEGA Primary Care Provider [phone] Renato Fermin RN Unavailable [phone] Encounter Details Date Type Department Care Team ([facility] st Contact Info) Description 07/01/2024 Patient Outreach [facility] [address] [place] [address] Merrill Espinosa [address] [place] [address] Social History Tobacco Use Types Packs/Day Years [...] as of this encounter Progress Notes * Merrill Espinosa - 07/01/2024 4:39 PM EST I met with Papo today. Setting: in person at [facility] Recovery Wellness Goals worked on: Social Stability Action taken/next steps: Attended recovery support group Additional comments: Participant attended a group session centered on recovery topics, where members engaged in open discussion and offered mutual support Merrill Espinosa documented in this encounter Plan of Treatment Upcoming Encounters Date Type Department Care Team (Late st Contact Info) Description 07/10/2024 2:30 PM EST Telemedicine [facility] [address] [place] [phone] 07/11/2024 10:00 AM EST Clinical Support [facility] [address] [place] [phone] Ellie Lu, PURA documented as of this encounter Visit Diagnoses Not on filedocumented in this encounter Additional Health Concerns Assessment Noted Time PHQ-9 Depression Total Score: 11 024 3:17 PM EST documented as of this encounter Care Teams Church Communications Administrator Relationship Specialty Start Date End Date Name, MD Regan [address] [place] [address] PCP - General Internal Medicine 11/26/23 Renato Fermin RN [address] [place] [address] Transitional Care ManagerManagement Services Technician 06/18/24 documented as of this encounter
--- OUTSIDE RECORDS SUMMARY | 2024-07-04 13:02 | XMS_ITS | Encounter Summary ---
Author Organization [employer] Address [address] 7t [place] [address] Care Team Providers Care Core Finisher Name Role Phone Name, Regan ORTEGA Primary Care Provider [phone] Reason for Visit * Reason Comments Care Coordination CM/CHW appt reminder Encounter Details Date Type Department Care Team (Latest Contact Info) Description 06/17/2024 Patient Outreach [facility] [address] [place] [address] Name, MD Regan [address] [place] [address] Care Coordination (CM/CHW appt reminder) Social History Tobacco Use Types Packs/Day Years [...] What is your housing situation today? I do not have housing (Staying with others, in a hotel, in a usp, living outside on the street, on a beach, in a car, or in a park 03/05/[address] you li ve. Do you have problems with any of the following? None of the above 03/05/2023 Food Insecurity Answer Date Recorded Within the past 12 months, y ou worried that your food would run out before you got money to buy more: Often true 2022 Within the past 12 months,th e food you bought just didn't last and you didn't have enough money to get more: Sometimes True 03/12/2023 Transportation Answer Date Recorded In the past 12 months, has l ack of transportation kept you from medical appts, meetings, work or from getting things needed for daily living? Yes, it has kept me from medical appointments or getting medications. 03/05/2023 Utilities Answer Date Recorded In the past 12 months, has t he electric, gas, oil or water company threatened to shut off services in your home? I am not sure 03/12/2023 Depression Answer Date Recorded Patient Health Questionnaire-2 Score 1 05/02/2024 Sex and Gender Information Value Date Recorded Sex Assigned at Male 01/31/2023 10:59 AM EDT Legal Sex Male 2:59 PM EDT Gender Identity Male 01/31/2023 10:59 AM EDT Sexual Orientation Straight 01/31/2023 10 :59 AM EDT documented as of this encounter Progress Notes * Tsering Cisneros - 06/17/2024 11:26 AM EST CHW Tsering Cisneros placed outbound call to patient introducing herself from [facility] CM Department, in regard to remind patient of Adult Complex Care program initial assessment appt for tomorrow 06/18/24 @ 1PM in person with CM Renato Fermin RN Patient's name and was confirmed. Patient is aware and confirmed will be available for call and has no barriers on attending call. Patient verbalized understanding and agreed with plan. documented in this encounter Plan of Treatment Upcoming Encounters Date Type Department Care Team (Late st Contact Info) Description 07/10/2024 2:30 PM EST Telemedicine [facility] [address] [place] [phone] 07/11/2024 10:00 AM EST Clinical Support [facility] [address] [place] [phone] Aly, Ellie, RN documented as of this encounter Visit Diagnoses Not on filedocumented in this encounter Additional Health Concerns Assessment Noted Time PHQ-9 Depression Total Score: 11 024 3:17 PM EST documented as of this encounter Care Teams Core Finisher Relationship Specialty Start Date End Date Name, MD Regan [address] [place] [address] PCP - General Internal Medicine 11/26/23 documented as of this encounter
--- OUTSIDE RECORDS SUMMARY | 2024-07-04 13:02 | XMS_ITS | Encounter Summary ---
Author Organization [facility] Address [address] [place] [address] Care Team Providers Care Freight Tallier Name Role Phone Name, Regan ORTEGA Primary Care Provider [phone] Renato Fermin RN Unavailable [phone] Reason for Visit * Reason Comments GBOT F/U Encounter Details Date Type Department Care Team (Latest Contact Info) Description 07/02/2024 10:00 AM EST Office Visit [facility] [address] [place] [address] Inderjit Bonner MD [address] [place] [address] Opioid dependence, uncomplicated (CMS/HCC) (Primary Dx) Social History Tobacco Use Types Packs/Day Years [...] the past 12 months, has t he [employer], gas, oil or water company threatened to [...] as of this encounter Progress Notes * Inderjit Bonner MD - 07/02/2024 10:00 AM EST Papo seen today for opioid use disorder. He is on current Suboxone dose of 24/6 mg on a 3-week schedule. Induction date: 02/02/23 LFTs done: 10/2023 Hep A status: reactive Hep B status: non-reactive Hep C status: 02/02/23: non-reactive HIV status: 02/02/23: non-reactive Individual OBAT clinic with Dr. Mckeon LAST GBAT VISIT 06/11/2024 LAST UTOX (05/30/2024): POS THC, BUP Patient presents for Group-Based Opioid Treatment for OUD Reviewed the group goals, expectations and policies Consented to the group treatment options Doing markedly better Actively participated in the group discussion with the topic of: Forgiveness Following staff present at the visit: Physician, Licensed Mental Health Counselor, Clinician, Team RN, and MedicalAssistant Opportunities provided to address individual medical/medication/ concerns States doing well without cravings or relapse TODAY GBAT VISIT 07/02/2024 LAST UTOX (06/20/2024): POS THC, BUP Patient presents for Group-Based Opioid Treatment for OUD Reviewed the group goals, expectations and policies Consented to the group treatment options Doing markedly better Actively participated in the group discussion with the topic of: Strategies for Maintaining the Process of Recovery Following staff present at the visit: Physician, Licensed Mental Health Counselor, Clinician, Team RN, and MedicalAssistant Opportunities provided to address individual medical/medication/ concerns States doing well without cravings or relapse Review of Systems Psychiatric/Behavioral: Negative for behavioral problems and dysphoric mood. The patient is not nervous/anxious. Physical Exam Constitutional: Appearance: Normal appearance. Pulmonary: Effort: Pulmonary effort is normal. Neurological: Mental Status: He is alert. Psychiatric: Mood and Affect: Mood normal. Behavior: Behavior normal. Papo was seen today for gbot f/u . Diagnoses and all orders for this visit: Opioid dependence, uncomplicated (CMS/HCC) (Primary) Patient presents for Group-Based Addiction Treatment of OUD Reviewed the group goals, expectations and policies Consented to the group treatment options Actively participated in the group discussed Future discussion topics reviewed Patient is tolerating current treatment of Buprenorphine Reviewed behavioral modification and accessing services Group counseling provided with a focus on support system, tools for achieving/maintaining recovery Reviewed barriers for these goals Discussed strategies to address when faced situations that may trigger use Mass DISTRIBUTOR OPERATOR reviewed Following staff present at the visit: Physician, Clinician, Team RN, Licensed Mental Health Counselor and Photoengraving Machine Operator/Tender This information has been disclosed to you from records protected by federal confidentiality rules (42 CFR Part 2). The federal rules prohibit you from making any further disclosure of information inthis record that identifies a patient as having or having had a substance use disorder either directly, by reference to publicly available information, or through verification of such identification by another person unless further disclosure is expressly permitted by the written consent of the individual whose information is being disclosed or as otherwise permitted by (see2.3.1). The federal rules restrict any use of the information to investigate or prosecute with regard to a crime any patient with a substance use disorder, except as provided at 2.12??(5) and 2.65. documented in this encounter Plan of Treatment Upcoming Encounters Date Type Department Care Team (Late st Contact Info) Description 07/10/2024 2:30 PM EST Telemedicine [address] [address] 07/11/2024 10:00 AM EST Clinical Support [address] [address] Ellie Lu, PURA documented as of this encounter Visit Diagnoses Diagnosis Opioid dependence, uncomplicated (CMS/HCC)- Primary documented in this encounter Additional Health Concerns Assessment Noted Time PHQ-9 Depression Total Score: 11 024 3:17 PM EST documented as of this encounter Care Teams Freight Tallier Relationship Specialty Start Date End Date Name, MD Regan [address] [place] [address] PCP - General Internal Medicine 11/26/23 Renato Fermin RN [address] [place] [address] Hand SpinnerHyster Machine Operator 06/18/24 documented as of this encounter
--- OUTSIDE RECORDS SUMMARY | 2024-07-04 13:02 | XMS_ITS | Encounter Summary ---
Author Organization [employer] Address [address] [place] [address] Care Team Providers Care Trim Setter Helper Name Role Phone Name, Regan ORTEGA Primary Care Provider [phone] Encounter Details Date Type Department Care Team (Late st Contact Info) Description 06/17/2024 Patient Outreach [facility]INE [address] [place] [address] MarsJin [address] [place] [address] Social History Tobacco Use Types Packs/Day Years [...] with others, in a hotel, in a longterm, living outside on the street, on a [...] encounter Progress Notes * Jin Mars - 06/17/2024 2:32 PM EST I met with Papo cazares. Setting: in person at [facility] Recovery Wellness Goals worked on: Social Stability Action taken/next steps: Attended recovery support group Additional comments: Participant attended a group session centered on recovery topics, where members engaged in open discussion and offered mutual support. Jin Mars documented in this encounter Plan of Treatment Upcoming Encounters Date Type Department Care Team (Late st Contact Info) Description 07/10/2024 2:30 PM EST Telemedicine [facility] [address] [place] [address] 07/11/2024 10:00 AM EST Clinical Support [facility] [address] [place] [address] Ellie Lu RN documented as of this encounter Visit Diagnoses Not on filedocumented in this encounter Additional Health Concerns Assessment Noted Time PHQ-9 Depression Total Score: 11 024 3:17 PM EST documented as of this encounter Care Teams Trim Setter Helper Relationship Specialty Start Date End Date Name, MD Regan [address] [place] [address] PCP - General Internal Medicine 11/26/23 documented as of this encounter
--- OUTSIDE RECORDS SUMMARY | 2024-07-04 13:02 | XMS_ITS | Encounter Summary ---
Author Organization [employer] [facility] Address [address] [place] [address] Care Team Providers Care Sign Poster Name Role Phone Name, Regan ORTEGA Primary Care Provider [phone] Reason for Visit * Reason Onset Date Comments Med Refill 06/13/2024 Encounter Details Date Type Department Care Team (Late st Contact Info) Description 06/13/2024 Refill [facility] [address] [place] [address] Ellie Lu RN Uncomplicated opioid dependence (CMS/[facility]) Social History Tobacco Use Types Packs/Day Years [...] with others, in a hotel, in a fpc, living outside on the street, on a [...] the past 12 months, has t he cocone, gas, oil or water company threatened to [...] Info) Description 07/10/2024 2:30 PM EST Telemedicine [facility] [address] [place] [address] 07/11/2024 10:00 AM EST Clinical Support [address] [address] Ellie Lu, RN documented as of this encounter Visit Diagnoses Diagnosis Uncomplicated opioid dependence (CMS/HCC) documented in this encounter Additional Health Concerns Assessment Noted Time PHQ-9 Depression Total Score: 11 024 3:17 PM EST documented as of this encounter Care Teams Sign Poster Relationship Specialty Start Date End Date Name, MD Regan [address] [place] [address] PCP - General Internal Medicine 11/26/23 documented as of this encounter
--- OUTSIDE RECORDS SUMMARY | 2024-07-04 13:02 | XMS_ITS | Encounter Summary ---
Author Organization [employer] [facility] Address [address] 7t [place] [address] Care Team Providers Care Hand Candle Molder Name Role Phone Name, Regan ORTEGA Primary Care Provider [phone] Renato Fermin RN Unavailable [phone] Reason for Visit * Reason Comments OBAT Encounter Details Date Type Department Care Team (Latest Contact Info) Description 06/20/2024 10:15 AM EST Office Visit [facility] [address] [place] [address] Jose Mckeon MD [address] [place] [address] Opioid dependence, uncomplicated (CMS/HCC) (Primary Dx); Tobacco use disorder Social History Tobacco Use Types Packs/Day Years [...] as of this encounter Progress Notes * Jose Mckeon MD - 06/20/2024 10:15 AM EST Patient ID: Papo seen today for opioid use disorder. He is on current Suboxone dose of 24/6 mg on a3-week schedule. Induction date: 02/02/23 LFTs done: 02/02/23 Hep A status: reactive Hep B status: non-reactive Hep C status: 02/02/23: non-reactive HIV status: 02/02/23: non-reactive Individual OBAT clinic with Dr. Mckeon 05/30/24 UTOX: +bup, thc Papo presented today for OBAT RN IN PERSON VISIT for Opioid Use Disorder. He is alert and oriented.Speech clear, coherent and goal directed. Easily engaged and initiates conversation. Neat, clean, kempt in appearance and dressed appropriately for weather. Continues to do well on suboxone. Denies illicit substance use, cravings or side effects. Goes to different churches frequently. Developing new relationships in the community. Tearful at times when talking about some of the difficulties a close friend of his is going through. Today 06/20/24 F/U for opioid use disorder Utox BUP, THC Papo reports he continues to do well. He's excited about the first session of the Peer Support Group he developed is starting today @ 2 in [facility]. Also, is starting [employer]. Doing well on current dose, no ADRs. Regularly attend the recovery support group and often attends GBOT. No substance use other than THC. Objective Physical Exam Constitutional: Appearance: Normal appearance. Neurological: Mental Status: He is alert and oriented to person, place, and time. Psychiatric: Mood and Affect: Mood normal. Behavior: Behavior normal. Thought Content: Thought content normal. Assessment/Plan Opioid dependence, uncomplicated (CMS/HCC) Utox BUP, THC Papo reports he continues to do well. He's excited about the first session of the Peer Support Group he developed is starting today @ 2 in [facility]. Also, is starting [employer]. Doing well on current dose, no ADRs. Regularly attend the recovery support group and often attends [employer]. No substance use other than THC. As above. Continues to do well. Excited about the first session of the Peer Support Group he has initiated and planned. Excited about starting the [employer]. F/U 3 weeks. Plan change to q 4 weeks in the near future. Tobacco use disorder Review on f/u. Diagnoses and all orders for this visit: Opioid dependence, uncomplicated (CMS/HCC) Tobacco use disorder This information has been disclosed to you from records protected by federal confidentiality rules(42 CFR Part 2). The federal rules prohibit you from making any further disclosure of information in this record that identifies a patient as having or having had a substance use disorder either directly, by reference to publicly available information, or through verification of such identificationby another person unless further disclosure is expressly permitted by the written consent of the individual whose information is being disclosed or as otherwise permitted by (see 2.3.1). The federal rules restrict any use of the information to investigate or prosecute with regard to a crime any patient with a substance use disorder, except as provided at 2.12??(5) and 2.65. documented in this encounter Plan of Treatment Upcoming Encounters Date Type Department Care Team (Late st Contact Info) Description 07/10/2024 2:30 PM EST Telemedicine [address] [address] 07/11/2024 10:00 AM EST Clinical Support [address] [address] Ellie Lu RN documented as of this encounter Procedures Procedure Name Priority Date/Time Associated Diagnosis Comments POCT JJ-14 URINE DRUG SCREEN Routine 06/20/2024 11:46 AM EST Opioid dependence, uncomplicated (CMS/HCC) documented in this encounter Results * POCT JJ-14 Urine Drug Screen (06/20/2024 11:46 AM EST) THC Positive Cocaine Screen, Urine Negative Opiate Screen, Urine Negative Methamphetamine Screen Urine Negative Amphetamine Screen, Urine Negative Benzodiazepines Screen, Urine Negative Barbiturate Screen, Urine Negative Methadone Screen, Urine Negative Buprenophine Screen, Urine Positive TCA, Urine Negative MDMA Urine Negative ng/mL Oxycodone Screen, Urine Negative Phencyclidine (PCP), Urine Negative Propoxyphene, Urine Negative Fentanyl, Urine Negative Urine Urine specimen obtained by clean catch procedure / Unknown 06/20/2024 11:46 AM EST Jose Mckeon MD POINT OF CARE TEST ENTER/EDIT ORDERABLES Final Result documented in this encounter Visit Diagnoses Diagnosis Opioid dependence, uncomplicated (CMS/HCC)- Primary Tobacco use disorder documented in this encounter Additional Health Concerns Assessment Noted Time PHQ-9 Depression Total Score: 11 05/02/2 024 3:17 PM EST documented as of this encounter Care Teams Hand Candle Molder Relationship Specialty Start Date End Date Name, MD Regan [address] [place] [address] PCP - General Internal Medicine 11/26/23 Renato Fermin RN [address] [place] [address] Auto Parts Delivery DriverCustodial Laborer 06/18/24 documented as of this encounter
--- OUTSIDE RECORDS SUMMARY | 2024-07-04 13:02 | XMS_ITS | Encounter Summary ---
Author Organization [employer] [facility] Address [address] 7t [place] [address] Care Team Providers Care Wire Mesh Gate Assembler Name Role Phone Name, Regan ORTEGA Primary Care Provider [phone] Renato Fermin RN Unavailable [phone] Reason for Visit * Reason Onset Date Comments Error (VOID this visit) 06/13/2024 Encounter Details Date Type Department Care Team ([facility] st Contact Info) Description 06/13/2024 Telephone [facility] MEDICINE [address] [place] [address] Ellie Lu RN Error (VOID this visit) Social History Tobacco Use Types Packs/Day Years [...] Info) Description 07/10/2024 2:30 PM EST Telemedicine [address] [address] 07/11/2024 10:00 AM EST Clinical Support [address] [address] Ellie Lu, PURA documented as of this encounter Visit Diagnoses Not on filedocumented in this encounter Additional Health Concerns Assessment Noted Time PHQ-9 Depression Total Score: 11 024 3:17 PM EST documented as of this encounter Care Teams Wire Mesh Gate Assembler Relationship Specialty Start Date End Date Name, MD Regan [address] [place] [address] PCP - General Internal Medicine 11/26/23 Renato Fermin, PURA [address] [place] [address] Obstetrics Gynecology MdMachine Operator Hop Worker 06/18/24 documented as of this encounter
--- OUTSIDE RECORDS SUMMARY | 2024-07-04 13:02 | XMS_ITS | Encounter Summary ---
Author Organization [employer] [facility] Address [address] [place] [address] Care Team Providers Care Cafeteria Clerk Name Role Phone Name, Regan ORTEGA Primary Care Provider [phone] Renato Fermin RN Unavailable [phone] Reason for Visit * Reason Comments Care Coordination SDOH Encounter Details Date Type Department Care Team (Latest Contact Info) Description 06/19/2024 Patient Outreach [facility] MEDICINE [address] [place] [address] Name, MD Regan [address] [place] [address] Care Coordination (SDOH) Social History Tobacco Use Types Packs/Day Years [...] encounter Progress Notes * Tsering Cisneros - 06/19/2024 8:17 AM EST CHW Tsering Cisneros met with patient in person with CM to discuss SDOH needs. Patient's name, and address confirmed. Patient states is doing well. Patient would like help with moving into a new sober living house, looking to move in to [facility], CHW will help patient with housing. Patient does not need transportation to appts if its in the area of [place]. CHW will continue to meet with patient in person for any other SDOH needed. No further questions or concerns. CHW reinforced direct contact information or CM for any additional questions or concerns and extended clinic hours on Mondays and Wednesdays, and Walk-In Urgent Care Located in [facility]. Patient provided with after-hours line for [facility], , which offer night time triage service and option to transfer to community health education coordinator provider if needed. Patient verbalizes understanding, and able to repeat back to copy writer. A follow up call willbe placed within 10 days, patient agrees with plan. documented in this encounter Plan of Treatment Upcoming Encounters Date Type Department Care Team (Late st Contact Info) Description 07/10/2024 2:30 PM EST Telemedicine [address] [address] 07/11/2024 10:00 AM EST Clinical Support [address] [address] Ellie Lu, PURA documented as of this encounter Visit Diagnoses Not on filedocumented in this encounter Additional Health Concerns Assessment Noted Time PHQ-9 Depression Total Score: 11 024 3:17 PM EST documented as of this encounter Care Teams Cafeteria Clerk Relationship Specialty Start Date End Date Name, MD Regan [address] [place] [address] PCP - General Internal Medicine 11/26/23 Renato Fermin, PURA [address] [place] [address] Senior Genetic CounselorPlant Biology Professor 06/18/24 documented as of this encounter
--- OUTSIDE RECORDS SUMMARY | 2024-07-04 13:02 | XMS_ITS | Encounter Summary ---
Author Organization [employer] Address [address] [place] [address] Care Team Providers Care Skidder Name Role Phone Name, Regan ORTEGA Primary Care Provider [phone] Renato Fermin RN Unavailable Encounter Details Date Type Department Care Team ([facility] st Contact Info) Description 06/30/2024 Patient Outreach [facility]ICINE [address] [place] [address] Jin Mars [address] [place] [address] Social History Tobacco Use Types Packs/Day Years [...] encounter Progress Notes * Jin Mars - 06/30/2024 12:00 PM EST I met with Papo cazares. Setting: in person at [facility] Recovery Wellness Goals worked on: Social Stability Action taken/next steps: Attended alcohol and drug free activity Additional comments: Coffee and snacks has provided Jin Mars . documented in this encounter Plan of Treatment Upcoming Encounters Date Type Department Care Team (Late st Contact Info) Description 07/10/2024 2:30 PM EST Telemedicine [address] [address] 07/11/2024 10:00 AM EST Clinical Support [facility] MEDICINE [address] [place] [address] Ellie Lu, PURA documented as of this encounter Visit Diagnoses Not on filedocumented in this encounter Additional Health Concerns Assessment Noted Time PHQ-9 Depression Total Score: 11 024 3:17 PM EST documented as of this encounter Care Teams Skidder Relationship Specialty Start Date End Date Name, MD Regan [address] [place] [address] PCP - General Internal Medicine 11/26/23 Renato Fermin RN [address] [place] [address] Melter LoaderPublic Space Attendant 06/18/24 documented as of this encounter
--- OUTSIDE RECORDS SUMMARY | 2024-07-04 13:02 | XMS_ITS | Encounter Summary ---
Author Organization [employer] Address [address] 7[address] [place] [address] Care Team Providers Care Head Refrigerating Engineer Name Role Phone Name, Regan ORTEGA Primary Care Provider [phone] Renato Fermin RN Unavailable [phone] Reason for Visit * Reason Comments Recovery Supports Encounter Details Date Type Department Care Team ([facility] st Contact Info) Description 07/03/2024 Patient Outreach [facility] MEDICINE [address] [place] [address] Jin Mars [address] [place] [address] Recovery Supports Social History Tobacco Use Types [...] encounter Progress Notes * Jin Mars - 07/03/2024 2:57 PM EST I met with Papo cazares. Setting: in person at [facility] Recovery Wellness Goals worked on: Social Stability and Spiritual Wellness Action taken/next steps: Attended alcohol and drug free activity and Supported spiritual needs Additional comments: Recovery Center Jin Mars documented in this encounter Plan of Treatment Upcoming Encounters Date Type Department Care Team (Late st Contact Info) Description 07/10/2024 2:30 PM EST Telemedicine [address] [address] 07/11/2024 10:00 AM EST Clinical Support [facility] MEDICINE [address] [place] [address] Ellie Lu RN documented as of this encounter Visit Diagnoses Not on filedocumented in this encounter Additional Health Concerns Assessment Noted Time PHQ-9 Depression Total Score: 11 024 3:17 PM EST documented as of this encounter Care Teams Head Refrigerating Engineer Relationship Specialty Start Date End Date Name, MD Regan [address] [place] [address] PCP - General Internal Medicine 11/26/23 Renato Fermin RN [address] [place] [address] Dermatologist And DermatopathologistTree Cutter 06/18/24 documented as of this encounter
--- OUTSIDE RECORDS SUMMARY | 2024-07-04 13:02 | XMS_ITS | Encounter Summary ---
Author Organization [employer] [facility] Address [address] [place] [address] Care Team Providers Care Pulp Refiner Operator Name Role Phone Name, Regan ORTEGA Primary Care Provider [phone] Renato Fermin RN Unavailable [phone] Reason for Visit * Reason Comments Recovery Supports Encounter Details Date Type Department Care Team ([facility] st Contact Info) Description 06/30/2024 Patient Outreach [facility] MEDICINE [address] [place] [address] Merrill Espinosa [address] [place] [address] Recovery Supports Social History Tobacco Use Types [...] encounter Progress Notes * Merrill Espinosa - 06/30/2024 4:22 PM EST I met with Papo cazares. Setting: in person at [facility] Recovery Wellness Goals worked on: Physical Health/Mental Health, Social Stability, and Spiritual Wellness Action taken/next steps: Attended recovery support group Additional comments: Attended 12-step support group focused on introducing Steps 1, 2, and 3, and discussing their application in our recovery journey. Merrill Espinosa documented in this encounter Plan of Treatment Upcoming Encounters Date Type Department Care Team (Late st Contact Info) Description 07/10/2024 2:30 PM EST Telemedicine [facility] [address] [place] [address] 07/11/2024 10:00 AM EST Clinical Support [facility] [address] [place] [address] Ellie Lu RN documented as of this encounter Visit Diagnoses Not on filedocumented in this encounter Additional Health Concerns Assessment Noted Time PHQ-9 Depression Total Score: 11 024 3:17 PM EST documented as of this encounter Care Teams Pulp Refiner Operator Relationship Specialty Start Date End Date Name, MD Regan [address] [place] [address] PCP - General Internal Medicine 11/26/23 Renato Fermin RN [address] [place] [address] Telephone Sales AgentField Support Rep 06/18/24 documented as of this encounter
--- OUTSIDE RECORDS SUMMARY | 2024-07-04 13:02 | XMS_ITS | Encounter Summary ---
Author Organization [employer] Address [address] [place] [address] Care Team Providers Care Geographic Information System Analyst Name Role Phone Name, Regan ORTEGA Primary Care Provider [phone] Renato Fermin RN Unavailable [phone] Reason for Visit * Reason Onset Date Comments Care Management 06/18/2024 C3CM- initial as sessment/ enrollment Encounter Details Date Type Department Care Team ([facility] st Contact Info) Description 06/18/2024 Telephone [facility] MEDICINE [address] [place] [address] Renato Fermin RN [address] [place] [address] Care Management (C3CM- initial assessment/ enrollment) Social History Tobacco Use Types Packs/Day Years [...] AM EDT documented as of this encounter Miscellaneous Notes * Telephone Encounter - Renato Fermin RN - 06/18/2024 5:41 PM EST SHOAIB Fermin RN, provided notification to PCP Name of patient's enrollment into [facility] Program. SHOAIB Fermin RN, completed care plan and sent to HIM to be scanned into the medical record. PCP notified and awaiting review from provider. SHOAIB plan: -assist patient with establishing care with PCP. -assist patient with obtaining referrals and establishing care with specialists. - assist patient with appt reminders and transportation to visits as needed - provide education around disease processes and management -provide resources based on positive SDOH needs * Telephone Encounter - Renato Fermin RN - 06/18/2024 5:41 PM EST SHOAIB Fermin RN met with patient in person for agreed upon time for initial assessment for enrollment into Adult Care Management Program. Patient's name, , and address were verified. Papo is a 44 year old male with Hx of HTN, anemia, opioid use disorder, depression, anxiety, alcohol use, and prolonged grief disorder. Patient being followed by [facility] and Behavioral Health. Patient reports compliance to visits. He is currently participating in peer support groups. He also reports participating in individual therapy. Patient states he is active in the community and his hope is to open/develop sober homes in the future. Patient reports being sober. He denies any drug use. He does report smoking cigarettes and states he is interested in quitting. He states he has tried both nicotine patches and lozenges in the past with no effect. Patient with hx of HTN. He states he has a working BP monitor at home but has not used it. Patient reports knowing how to use the monitor and declines teaching at this time. Per patient, following a diet that is low is salt/carbs. He states he also exercises and reports losing weight in the last several months. CM educated patient on diet and lifestyle modifications. CM also educated patient on BP parameters. CM provided patient with a BP log today. Patient agreeable to begin to monitor BID and will f/u with readings at the next f/u with CM. CM educated patient on s/s of elevated BP and advised that he please contact the office if BP readings high and/or if symptomatic so that a f/u visit can be scheduled. He verbalizes understanding and agrees. He is also aware of the walk in center and clinics hours and knows to f/u as needed. Patient reports compliance to BP regimen but states he is running low on BP meds. Patient has not seen PCP and will need a f/u appointment scheduled. CM will assist with scheduling visit. Patient reports Hx of prediabetes. CM noted patient was also prescribed testing supplies in 2022. Per patient, not currently checking sugars. CM will add to appt details for provider to review during his f/u appt. Patient not currently established with vision or dental. He states he has not followed up in several years. Per patient, no concerns with his vision at this time. He denies any dental concerns but would like to schedule an appointment for cleaning. CM advised patient that there is currently a wait for appointments but advised that he please f/u with [facility] dental to establish care. He agrees. In regards to vi tramaine, CM will send request for referral to PCP to review. Patient independent with ADLs. He denies use or need of DME. He does report chronic lower back pain that may have resulted from an injury at work several years ago. He states it is possible that weight gain also contributed to that pain. Perpatient, not able to stand for long periods of time as this makes the pain worse. He denies pain at this time. Patient also reports recent hair loss and is unsure if this is attributed to stress. He would like to address this with his provider during upcoming visit. Patient reports being seen at [facility] 06/04/24 following an allergic reaction. He states he is not sure what could have been the exact c ause. Patient states he was treated at the ED and was also prescribed meds following the ED visit. Per patient, did not take the meds as his symptoms had subsided. He denies experiencing any symptomssince the ED visit. Care management program explained and contact information given. Patient verbalizes understanding, and able to repeat back to production underwriter. A follow up call will be placed within 10 days, patient agrees with plan. documented in this encounter Plan of Treatment Upcoming Encounters Date Type Department Care Team (Late st Contact Info) Description 07/10/2024 2:30 PM EST Telemedicine [address] [address] 07/11/2024 10:00 AM EST Clinical Support [address] [address] Ellie Lu RN documented as of this encounter Visit Diagnoses Not on filedocumented in this encounter Additional Health Concerns Assessment Noted Time PHQ-9 Depression Total Score: 11 024 3:17 PM EST documented as of this encounter Care Teams Geographic Information System Analyst Relationship Specialty Start Date End Date Name, MD Regan [address] [place] [address] PCP - General Internal Medicine 11/26/23 Renato Fermin RN [address] [place] [address] Marine Tower OperatorArea Forester 06/18/24 documented as of this encounter
--- OUTSIDE RECORDS SUMMARY | 2024-07-04 13:02 | XMS_ITS | Encounter Summary ---
Author Organization [employer] [facility] Address [address] [place] [address] Care Team Providers Care City Bailiff Name Role Phone Name, Regan ORTEGA Primary Care Provider [phone] Renato Fermin RN Unavailable [phone] Reason for Visit * Reason Onset Date Comments Care Management 06/25/2024 C3CM- 1st f/u Encounter Details Date Type Department Care Team ([facility] st Contact Info) Description 06/25/2024 Telephone [facility] MEDICINE [address] [place] [address] Renato Fermin, RN [address] [place] [address] Care Management (C3CM- 1st f/u) Social History Tobacco Use Types Packs/Day Years [...] Telephone Encounter - Renato Fermin RN - 06/25/2024 3:20 PM EST SHOAIB Fermin RN and CHW Tsering Cisneros met with patient in person today for follow up. Patient's name, and address confirmed. Patient states is doing well with no recent illnesses or emergency room visits. Per patient, started the first group for father's this week. He states it is going well. Patient also met with Victoriano for individual therapy on 06/20. Per patient, has not yet started m onitoring his BP stating he has been busy preparing for groups this past week. He states he plans on starting to monitor today. He is agreeable to logging BP and will provide readings to CM at the next f/u call. CHW provided patient with resources for sober homes/housing today. He is aware of his scheduled visit with on 07/04 and denies any barriers to attending. Patient denies any immediate needs or concerns at this time. No further questions or concerns. CM reinforced direct contact information or CHW for any additional questions or concerns. Education provided on Walk-In Urgent Care located in [facility] of [facility]. Patient provided with after-hours line for [facility], , which offer night time triage service and option to transfer to motion picture critic provider if needed. Patient verbalizes understanding, and able to repeat back to underwriter mortgage loan. A follow up call will be placed within 10 days, patientagrees with plan. documented in this encounter Plan of Treatment Upcoming Encounters Date Type Department Care Team (Late st Contact Info) Description 07/10/2024 2:30 PM EST Telemedicine [address] [address] 07/11/2024 10:00 AM EST Clinical Support [address] [address] Ellie Lu RN documented as of this encounter Visit Diagnoses Not on filedocumented in this encounter Additional Health Concerns Assessment Noted Time PHQ-9 Depression Total Score: 11 024 3:17 PM EST documented as of this encounter Care Teams City Bailiff Relationship Specialty Start Date End Date Name, MD Regan [address] [place] [address] PCP - General Internal Medicine 11/26/23 Renato Fermin, PURA [address] [place] [address] Load BuilderShipping Checker 06/18/24 documented as of this encounter
--- OUTSIDE RECORDS SUMMARY | 2024-07-04 13:02 | XMS_ITS | Encounter Summary ---
Author Organization [id number] [facility] Address [address] [place] [address] Care Team Providers Care Message And Delivery Service Pricer Name Role Phone Name, Regan ORTEGA Primary Care Provider [phone] Renato Fermin RN Unavailable [phone] Reason for Visit * Reason Comments Recovery Supports Encounter Details Date Type Department Care Team ([facility] st Contact Info) Description 06/20/2024 Patient Outreach [facility] MEDICINE [address] [place] [address] Sergio Smart Recovery Supports Social History Tobacco Use Types [...] is your housing situation today? I have silviadrea simmons 06/19/[address] you [...] as of this encounter Progress Notes * Sergio Smart - 06/20/2024 10:19 AM EST I met with Papo cazares. Setting: in person at [facility] Recovery Wellness Goals worked on: Personal/Professional Development (Education/Employment) and Social Stability Action taken/next steps: Enrolled in educational courses, Facilitated access to technology resources (computer support), andOffered person centered recovery support Additional comments: Yesterday, I received the books for the guest experience representative training to distribute to the CRS participants. Sergio Smart documented in this encounter Plan of Treatment Upcoming Encounters Date Type Department Care Team (Late st Contact Info) Description 07/10/2024 2:30 PM EST Telemedicine [facility] MEDICINE [address] [place] [address] 07/11/2024 10:00 AM EST Clinical Support [facility]INE [address] [place] [address] Ellie Lu, PURA documented as of this encounter Visit Diagnoses Not on filedocumented in this encounter Additional Health Concerns Assessment Noted Time PHQ-9 Depression Total Score: 11 024 3:17 PM EST documented as of this encounter Care Teams Message And Delivery Service Pricer Relationship Specialty Start Date End Date Name, MD Regan [address] [place] [address] PCP - General Internal Medicine 11/26/23 Renato Fermin RN [address] [place] [address] Wellness TrainerCurrency Counter 06/18/24 documented as of this encounter
--- OUTSIDE RECORDS SUMMARY | 2024-07-04 13:02 | XMS_ITS | Encounter Summary ---
Author Organization [employer] [facility] Address [address] [place] [address] Care Team Providers Care Decorating Machine Operator Name Role Phone Name, Regan ORTEGA Primary Care Provider [phone] Renato Fermin RN Unavailable [phone] Encounter Details Date Type Department Care Team (Latest Contact Info) Description 06/20/2024 Travel Social History Tobacco Use Types Packs/Day [...] Info) Description 07/10/2024 2:30 PM EST Telemedicine [address] [address] 07/11/2024 10:00 AM EST Clinical Support [address] [address] Ellie Lu, PURA documented as of this encounter Visit Diagnoses Not on filedocumented in this encounter Additional Health Concerns Assessment Noted Time PHQ-9 Depression Total Score: 11 024 3:17 PM EST documented as of this encounter Care Teams Decorating Machine Operator Relationship Specialty Start Date End Date Name, MD Regan [address] [place] [address] PCP - General Internal Medicine 11/26/23 Renato Fermin, PURA [address] [place] [address] Ui Ux DeveloperOcularist 06/18/24 documented as of this encounter
--- OUTSIDE RECORDS SUMMARY | 2024-07-04 13:02 | XMS_ITS | Encounter Summary ---
Author Organization [employer] Address [address] [place] [address] Care Team Providers Care Catering Truck Operator Name Role Phone Name, Regan ORTEGA Primary Care Provider [phone] Renato Fermin RN Unavailable [phone] Encounter Details Date Type Department Care Team ([facility] st Contact Info) Description 06/19/2024 Patient Outreach [facility] MEDICINE [address] [place] [address] Jin Mars [address] [place] [address] Social History Tobacco Use Types Packs/Day Years [...] encounter Progress Notes * Jin Mars - 06/19/2024 2:14 PM EST I met with Papo cazares. Setting: in person at [facility] Recovery Wellness Goals worked on: Social Stability Action taken/next steps: Attended alcohol and drug free activity Additional comments: Jin Mars documented in this encounter Plan of Treatment Upcoming Encounters Date Type Department Care Team (Late st Contact Info) Description 07/10/2024 2:30 PM EST Telemedicine [address] [address] 07/11/2024 10:00 AM EST Clinical Support [facility] MEDICINE [address] [place] [address] Ellie Lu, PURA documented as of this encounter Visit Diagnoses Not on filedocumented in this encounter Additional Health Concerns Assessment Noted Time PHQ-9 Depression Total Score: 11 024 3:17 PM EST documented as of this encounter Care Teams Catering Truck Operator Relationship Specialty Start Date End Date Name, MD Regan [address] [place] [address] PCP - General Internal Medicine 11/26/23 Renato Fermin RN [address] [place] [address] Director Of Government SalesProduction Expert 06/18/24 documented as of this encounter
--- OUTSIDE RECORDS SUMMARY | 2024-07-04 13:02 | XMS_ITS | Encounter Summary ---
Author Organization [employer] [facility] Address [address] [place] [address] Care Team Providers Care Local Coordinator Name Role Phone Name, Regan ORTEGA Primary Care Provider Renato Fermin RN Unavailable [phone] Reason for Visit * Reason Comments JANET Recovery Supports Encounter Details Date Type Department Care Team ([facility] st Contact Info) Description 06/24/2024 Patient Outreach [facility] MEDICINE [address] [place] [address] Sergio Smart Recovery Supports Social History Tobacco [...] encounter Progress Notes * Sergio Smart - 06/24/2024 3:23 PM EST I met with Papo cazares. Setting: in person at [facility] Recovery Wellness Goals worked on: Social Stability Action taken/next steps: Attended recovery support group and Offered person centered recovery support Additional comments: RSG Sergio Smart documented in this encounter Plan of Treatment Upcoming Encounters Date Type Department Care Team (Late st Contact Info) Description 07/10/2024 2:30 PM EST Telemedicine [address] [address] 07/11/2024 10:00 AM EST Clinical Support [address] [address] Ellie Lu RN documented as of this encounter Visit Diagnoses Not on filedocumented in this encounter Additional Health Concerns Assessment Noted Time PHQ-9 Depression Total Score: 11 024 3:17 PM EST documented as of this encounter Care Teams Local Coordinator Relationship Specialty Start Date End Date Name, MD Regan [address] [place] [address] PCP - General Internal Medicine 11/26/23 Renato Fermin RN [address] [place] [address] Supervisor PurificationDerrick Car Operator 06/18/24 documented as of this encounter
--- OUTSIDE RECORDS SUMMARY | 2024-07-04 13:02 | XMS_ITS | Encounter Summary ---
Author Organization [employer] [facility] Address [address] [facility] 7t [place] [address] Care Team Providers Care Pc Tech Name Role Phone Name, Regan ORTEGA Primary Care Provider [phone] Renato Fermin RN Unavailable [phone] Reason for Referral * Consultation (Routine) - Authorized Specialty Diagnoses / Procedures Referred By Contac t Referred To Contact Allergy Diagnoses Urticaria, unspecified Regan Bustillo MD [address] [place] [address] Phone: tel: fax: Christian Longoria MD [address] [place] [address] [address] [place] [address] Phone: tel: fax: Referral ID Status Reason Start Date Expiration Date Visits Requested Visits Authorized [id number] Authorized Specialty Services Required 07/02/2024 07/02/2025 12 12 Reason for Visit * Reason Comments Follow-up Encounter Details Date Type Department Care Team ([facility] st Contact Info) Description 07/02/2024 9:00 AM EST Office Visit [facility] MEDICINE [address] [place] [phone] Regan Bustillo MD [address] [place], [place] [phone] Hypertension, unspecified type (Primary Dx); Vaccine refused by patient; Urticaria, unspecified Social History Tobacco Use Types Packs/Day Years [...] AM EDT documented as of this encounter Last Filed Vital Signs Vital Sign Reading Time Taken Comments Blood Pressure 150/97 07/02/2024 9:15 AM EST Pulse 88 07/02/2024 9:15 AM EST Temperature 36.6 ??C (97.8 ??F) 07/02/2024 9:15 AM ES T Respiratory Rate 22 07/02/2024 9:15 AM EST Oxygen Saturation 97% 07/02/2024 9:15 AM EST Inhaled Oxygen Concentration - - Weight 116 kg (255 lb 9.6 oz) 07/02/2024 9:15 AM EST Height 175.3 cm (5' 9 ) 07/02/2024 9:15 AM EST Body Mass Index 37.75 07/02/2024 9:15 AM EST documented in this encounter Progress Notes * Regan Bustillo MD - 07/02/2024 9:00 AM EST Subjective Patient ID: Papo Knapp is a 44 y.o. male who presents for Follow-up. Patient comes for a follow-up visit. He is asymptomatic. Blood pressure is elevated today but he has not used his medications. He is treated with amlodipine and losartan/HCTZ. He has a blood pressuremonitor at home. He does not bring the record of blood pressure at home but he recalls having systolics above 140 at home. The patient tells me he was seen last week at [facility] ER with symptoms of hives. Hives have resolved atthe time of his visit today. He never had similar symptoms in the past. He denies using any new medications. He does not recall what particular food he ate prior to getting the hives. He did not haveswelling of the tongue or shortness of breath. Review of Systems Constitutional: Negative for chills, fatigue and fever. HENT: Negative for sore throat. Respiratory: Negative for cough, chest tightness and shortness of breath. Cardiovascular: Negative for chest pain, palpitations and leg swelling. Gastrointestinal: Negative for abdominal pain and blood in stool. Visit Vitals BP (!) 150/97 (BP Location: Right arm, Patient Position: Sitting, BP Cuff Size: Large adult) Pulse 88 Temp 97.8 ??F (36.6 ??C) (Oral) Resp 22 Ht 5' 9 (1.753 m) Wt 255 lb 9.6 oz (116 kg) SpO2 97% BMI 37.75 kg/m?? Smoking Status Every Day BSA 2.38 m?? Objective Physical Exam Constitutional: Appearance: Normal appearance. Cardiovascular: Rate and Rhythm: Normal rate and regular rhythm. Heart sounds: No murmur heard. Pulmonary: Effort: Pulmonary effort is normal. No respiratory distress. Breath sounds: No wheezing, rhonchi or rales. Abdominal: Palpations: Abdomen is soft. Tenderness: There is no abdominal tenderness. Musculoskeletal: Right lower leg: No edema. Left lower leg: No edema. Skin: Findings: No rash. Neurological: Mental Status: He is alert. Lab Results Component Value Date GLUCOSE 129 (H) 01/10/2024 NA 141 01/10/2024 K 3.6 01/10/2024 CO2 25 01/10/2024 CL 106 01/10/2024 BUN 15 01/10/2024 CREATININE 0.97 01/10/2024 Assessment/Plan Diagnoses and all orders for this visit: Hypertension, unspecified type Comments: Continue current medications. Check BP at home daily. Check fasting blood work listed below. Follow-up televisit with team nurse in 1 week for BP recheck. Orders: - Comprehensive Metabolic Panel; Future - Lipid Panel, Standard; Future - losartan-hydroCHLOROthiazide (Hyzaar) 100-25 MG tablet; Take 1 tablet by mouth Once per day. - amLODIPine (Norvasc) 5 MG tablet; Take 1 tablet (5 mg) by mouth Once per day. Vaccine refused by patient Urticaria, unspecified Comments: Patient had urticaria that resolved with the use of antihistamine in the ER. No new medications. Hecannot remember exactly what he ate prior to having urticaria. No symptoms of angioedema. I recommended daily loratadine and referral to airways operations specialist. Orders: - Referral to Allergy; Future Other orders - loratadine (Claritin) 10 MG tablet; Take 1 tablet (10 mg) by mouth Once per day. documented in this encounter Plan of Treatment Upcoming Encounters Date Type Department Care Team (Late st Contact Info) Description 07/10/2024 2:30 PM EST Telemedicine [facility] [address] [place] [address] 07/11/2024 10:00 AM EST Clinical Support [address] [address] Ellie Lu RN Scheduled Orders Name Type Priority Associated Diagnoses Orde r Schedule Comprehensive Metabolic Panel Lab Routine Hypertension, unspecified type Expected: 07/02/2024 (Approximate), Expires: 07/02/2025 Lipid Panel, Standard Lab Routine Hypertension, unspecified type Expected: 07/02/2024 (Approximate), Expires: 07/02/2025 Scheduled Referrals Name Type Priority Associated Diagnoses Orde r Schedule Referral to Allergy Outpatient Referral Routine Urticaria, unspecified Expected: 07/02/2024 (Approximate), Expires: 07/02/2025 documented as of this encounter Visit Diagnoses Diagnosis Hypertension, unspecified type- Primary Vaccine refused by patient Urticaria, unspecified documented in this encounter Additional Health Concerns Assessment Noted Time PHQ-9 Depression Total Score: 11 024 3:17 PM EST documented as of this encounter Care Teams Pc Tech Relationship Specialty Start Date End Date Name, MD Regan [address] [place] [address] PCP - General Internal Medicine 11/26/23 Renato Fermin RN [address] [place] [id number] Diesel Stationary EngineerHeavy Duty Mechanic 06/18/24 documented as of this encounter
--- OUTSIDE RECORDS SUMMARY | 2024-07-04 13:02 | XMS_ITS | Encounter Summary ---
Author Organization [employer] Address [address] [place] [address] Care Team Providers Care Clinical Unit Coordinator Name Role Phone Name, Regan ORTEGA Primary Care Provider [phone] Renato Fermin RN Unavailable [phone] Encounter Details Date Type Department Care Team ([facility] st Contact Info) Description 07/01/2024 Telephone [facility] [address] [place] [address] Renato Fermin RN [address] [place] [address] Social History Tobacco Use Types Packs/Day Years [...] Telephone Encounter - Renato Fermin RN - 07/01/2024 1:19 PM EST Call placed to patient. Patient agreeable to f/u visit with PCP tomorrow 07/02/24 at 9:00am for f/u HTN. Patient states she is running out of BP meds and may not have enough for the week. CM reinforcedthe importance of attending the f/u visit and advised that he please contact CM if unable to attend. He agrees. documented in this encounter Plan of Treatment Upcoming Encounters Date Type Department Care Team (Late st Contact Info) Description 07/10/2024 2:30 PM EST Telemedicine [facility] [address] [place] [address] 07/11/2024 10:00 AM EST Clinical Support [facility] [address] [place] [address] Ellie Lu RN documented as of this encounter Visit Diagnoses Not on filedocumented in this encounter Additional Health Concerns Assessment Noted Time PHQ-9 Depression Total Score: 11 024 3:17 PM EST documented as of this encounter Care Teams Clinical Unit Coordinator Relationship Specialty Start Date End Date Name, MD Regan [address] [place] [address] PCP - General Internal Medicine 11/26/23 Renato Fermin RN [address] [place] [address] Project Management AnalystMedicare Coordinator 06/18/24 documented as of this encounter
--- OUTSIDE RECORDS SUMMARY | 2024-07-04 13:02 | XMS_ITS | Encounter Summary ---
Author Organization [email or web address] Address [address] [place] [address] Care Team Providers Care Tromper Name Role Phone Name, Regan ORTEGA Primary Care Provider [phone] Renato Fermin RN Unavailable [phone] Reason for Visit * Reason Comments Med Refill Encounter Details Date Type Department Care Team ([facility] st Contact Info) Description 04/26/2023 Refill [facility] [address] [place] [address] Jose Mckeon MD [address] [place] [address] Uncomplicated opioid dependence (CMS/HCC) Social History Tobacco Use Types Packs/Day Years Used Date Smoking Tobacco: Every Day Cigarettes Smokeless Tobacco: Never Alcohol Use Standard Drinks/Week Comments Never 0 (1 standard drink = 0.6 oz pur e alcohol) Alcohol Answer Date Recorded How often do you have a drink containing alcohol ? 1 03/02/2023 How many drinks containing a lcohol do you have on a typical day when you are drinking? 0 03/02/2023 How often do you have six or more drinks on one occasion? 1 03/02/2023 Depression Answer Date Recorded Patient Health Questionnaire-9 Score 5 03/02/2023 Housing Stability Answer Date Recorded What is your housing situation today? I do not have housing (Staying with others, in a hotel, in a retirement, living outside on the street, on a [...] Answer Date Recorded Patient Health Questionnaire-2 Score 0 03/02/2023 Sex and Gender Information Value Date Recorded Sex Assigned at Male 01/31/2023 10:59 AM EDT Legal Sex Male 2:59 PM EDT Gender Identity Male 01/31/2023 10:59 AM EDT Sexual Orientation Straight 01/31/2023 10 :59 AM EDT documented as of this encounter Plan of Treatment Upcoming Encounters Date Type Department Care Team (Late st Contact Info) Description 07/10/2024 2:30 PM EST Telemedicine [facility] [address] [place] [phone] 07/11/2024 10:00 AM EST Clinical Support [facility] [address] [place] [phone] Ellie Lu, PURA documented as of this encounter Visit Diagnoses Diagnosis Uncomplicated opioid dependence (CMS/HCC) documented in this encounter Additional Health Concerns Assessment Noted Time PHQ-9 Depression Total Score: 5 03/02/20 23 12:24 PM EDT documented as of this encounter Care Teams Tromper Relationship Specialty Start Date End Date Name, MD Regan [address] [place] [address] PCP - General Internal Medicine 11/26/23 Renato Fermin, PURA [address] [place] [phone] Conference AssistantMercury Washer 06/18/24 documented as of this encounter
--- OUTSIDE RECORDS SUMMARY | 2024-07-04 13:03 | XMS_ITS | Encounter Summary ---
Author Organization [employer] [facility] Address [address] [place] [address] Care Team Providers Care Precipitate Washer Name Role Phone Name, Regan ORTEGA Primary Care Provider Reason for Visit * Reason Comments Recovery Supports Encounter Details Date Type Department Care Team ([facility] st Contact Info) Description 06/12/2024 Patient Outreach [facility] [address] [place] [address] Merrill Espinosa [address] [place] [address] Recovery Supports Social History Tobacco Use Types [...] with others, in a hotel, in a assisted, living outside on the street, on a [...] encounter Progress Notes * Merrill Espinosa - 06/12/2024 4:22 PM EST I spoke with Papo today about his behavior at the clinic. I explained to him that his disruptive actions--specifically telling the recovery coaches what to do and causing a scene about how the clinicshould be run--are not acceptable. Papo was informed that if he repeats these behaviors, he will beasked to leave immediately. documented in this encounter Plan of Treatment Upcoming Encounters Date Type Department Care Team (Late st Contact Info) Description 07/10/2024 2:30 PM EST Telemedicine [facility] [address] [place] [address] 07/11/2024 10:00 AM EST Clinical Support [facility] [address] [place] [address] Ellie Lu RN documented as of this encounter Visit Diagnoses Not on filedocumented in this encounter Additional Health Concerns Assessment Noted Time PHQ-9 Depression Total Score: 11 024 3:17 PM EST documented as of this encounter Care Teams Precipitate Washer Relationship Specialty Start Date End Date Name, MD Regan [address] [place] [address] PCP - General Internal Medicine 11/26/23 documented as of this encounter
--- OUTSIDE RECORDS SUMMARY | 2024-07-04 13:03 | XMS_ITS | Encounter Summary ---
Author Organization [employer] [facility] Address [address] [place] [address] Care Team Providers Care Delivery Driver Assistant Name Role Phone Name, Regan ORTEGA Primary Care Provider [phone] Renato Fermin RN Unavailable [phone] Encounter Details Date Type Department Care Team (Late st Contact Info) Description 05/22/2024 Orders Only [facility] [address] [place] [address] Yamel Kelly RN Opioid dependence, uncomplicated (CMS/HCC) Social History Tobacco Use Types Packs/Day [...] with others, in a hotel, in a senior living, living outside on the street, on a [...] the past 12 months, has t he [employer], [employer], oil or water [employer] threatened to shut off services in your [...] Info) Description 07/10/2024 2:30 PM EST Telemedicine [facility] [address] [place] [id number] 07/11/2024 10:00 AM EST Clinical Support [address] [address] Ellie Lu, RN Scheduled Orders Name Type Priority Associated Diagnoses Orde r Schedule Hepatic Function Panel Lab Routine Opioid dependence, uncomplicated (CMS/HCC) Expected: 05/22/2024 (Approximate), Expires: 05/22/2025 Hepatitis C Antibody with Reflex to HCV, RNA, Quantitative, Real-Time PCR Lab Routine Opioid dependence, uncomplicated (CMS/HCC) Expected: 05/22/2024 (Approximate), Expires: 05/22/2025 HIV-1/2 Antigen and Antibodies, Fourth Generation, with Reflexes Lab Routine Opioid dependence, uncomplicated (CMS/HCC) Expected: 05/22/2024 (Approximate), Expires: 05/22/2025 Syphilis Screen Lab Routine Opioid dependence, uncomplicated (CMS/HCC) Expected: 05/22/2024 (Approximate), Expires: 05/22/2025 T-SPOT??.TB Lab Routine Opioid dependence, uncomplicated (CMS/HCC) Expected: 05/22/2024 (Approximate), Expires: 05/22/2025 documented as of this encounter Visit Diagnoses Diagnosis Opioid dependence, uncomplicated (CMS/HCC) documented in this encounter Additional Health Concerns Assessment Noted Time PHQ-9 Depression Total Score: 11 024 3:17 PM EST documented as of this encounter Care Teams Delivery Driver Assistant Relationship Specialty Start Date End Date Name, MD Regan [address] [place] [phone] PCP - General Internal Medicine 11/26/23 Renato Fermin RN [address] [place] [id number] Animal StickerGlue Spreading Machine Operator 06/18/24 documented as of this encounter
--- OUTSIDE RECORDS SUMMARY | 2024-07-04 13:03 | XMS_ITS | Encounter Summary ---
Author Organization [employer] [facility] Address [address] [place] [address] Care Team Providers Care High Density Finishing Operator Name Role Phone Name, Regan ORTEGA Primary Care Provider [phone] Reason for Visit * Reason Comments GBAT Encounter Details Date Type Department Care Team (Latest Contact Info) Description 06/11/2024 9:00 AM EST Office Visit [facility] [address] [place] [address] Inderjit Bonner MD [address] [place] [address] Opioid dependence, uncomplicated (CMS/HCC) (Primary Dx) Social [...] with others, in a hotel, in a jail, living outside on the street, on a [...] Progress Notes * Inderjit Bonner MD - 06/11/2024 9:00 AM EST Papo seen today for opioid use disorder. He is on current Suboxone dose of 24/6 mg on a 3-week schedule. Induction date: 02/02/23 LFTs done: 10/2023 Hep A status: reactive Hep B status: non-reactive Hep C status: 02/02/23: non-reactive HIV status: 02/02/23: non-reactive Individual OBAT clinic with Dr. Mckeon LAST GBAT VISIT 05/07/2024 Patient presents for Group-Based Opioid Treatment for OUD Reviewed the group goals, expectations and policies Consented to the group treatment options Doing markedly better Actively participated in the group discussion with the topic of: Maintaining Sobriety During Holiday Season Following staff present at the visit: Physician, Rental Boats Caretaker, Clinician, Team RN, and MedicalAssistant Opportunities provided to address individual medical/medication/ concerns States doing well without cravings or relapse TODAY GBAT VISIT 06/11/2024 LAST UTOX (05/30/2024): POS THC, BUP Patient presents for Group-Based Opioid Treatment for OUD Reviewed the group goals, expectations and policies Consented to the group treatment options Doing markedly better Actively participated in the group discussion with the topic of: Forgiveness Following staff present at the visit: Physician, Rental Boats Caretaker, Clinician, Team RN, and MedicalAssistant Opportunities provided to address individual medical/medication/BH concerns States doing well without cravings or relapse Review of Systems Psychiatric/Behavioral: Negative for behavioral problems and dysphoric mood. The patient is not nervous/anxious. Physical Exam Constitutional: Appearance: Normal appearance. Pulmonary: Effort: Pulmonary effort is normal. Neurological: Mental Status: He is alert. Psychiatric: Mood and Affect: Mood normal. Behavior: Behavior normal. Papo was seen today for gbat. Diagnoses and all orders for this visit: [...] faced situations that may trigger use Mass WATER CONSERVATION SPECIALIST reviewed Following staff present at the visit: Physician, Clinician, Team RN, Rental Boats Caretaker and Second Baller This information has been disclosed to you [...] Info) Description 07/10/2024 2:30 PM EST Telemedicine [address] [address] 07/11/2024 10:00 AM EST Clinical Support [address] [address] Ellie Lu, RN documented as of this encounter Visit Diagnoses Diagnosis Opioid dependence, uncomplicated (CMS/HCC)- Primary documented in this encounter Additional Health Concerns Assessment Noted Time PHQ-9 Depression Total Score: 11 024 3:17 PM EST documented as of this encounter Care Teams High Density Finishing Operator Relationship Specialty Start Date End Date Name, MD [place] [address] PCP - General Internal Medicine 11/26/23 documented as of this encounter
--- OUTSIDE RECORDS SUMMARY | 2024-07-04 13:03 | XMS_ITS | Clinical Summary ---
Author Organization [employer] [facility] Address [address] 7t [place] [address] Care Team Providers Care Netezza Developer Name Role Phone Name, Regan ORTEGA Primary Care Provider [phone] Renato Fermin RN Unavailable [phone] Allergies No known active allergies Medications * This document contains information received from the source organization and may not represent a complete record from that organization. FREESTYLE LITE test strip USE 1 STRIP VIA METER 4 TIMES A DAY 01/31/20 23 Active FreeStyle lancets USE 1 LANCET VIA DEVICE FOUR TIMES A DAY 01/31/20 23 Active naloxone (Narcan) 4 mg/0.1 mL nasal sprayIndicatio ns:Uncomplicat ed opioid dependence (CMS/HCC) Administer 1 spray (4 mg) into affected nostril(s) if needed for opioid reversal. May repeat every 2-3 minutes if needed, alternating nostrils, until medical assistance becomes available. 2 each 3 04/06/20 23 Active aspirin 81 MG EC tablet Take 1 tablet (81 mg) by mouth Once per day. 30 tablet 11 11/19/19 24 025 Active Blood Pressure kit Use once a day 1 kit 11/26/19 24 Active Buprenorphine HCl-Naloxone HCl (Suboxone) 8-2 MG SL filmIndication s:Uncomplicate d opioid dependence (CMS/HCC) Place 1 Film under the tongue 3 times daily for 21 days. Do not start before June 20, 2024. 63 Film 06/20/19 25 025 Active losartan-hydro CHLOROthiazide (Hyzaar) 100-25 MG tabletIndicati ons:Hypertensi on, unspecified type Take 1 tablet by mouth Once per day. 90 tablet 1 07/02/19 25 026 Active amLODIPine (Norvasc) 5 MG tabletIndicati ons:Hypertensi on, unspecified type Take 1 tablet (5 mg) by mouth Once per day. 90 tablet 1 07/02/19 25 026 Active loratadine (Claritin) 10 MG tablet Take 1 tablet (10 mg) by mouth Once per day. 30 tablet 11 07/02/19 25 026 Active losartan-hydro CHLOROthiazide (Hyzaar) 100-25 MG tabletIndicati ons:Hypertensi on, unspecified type Take 1 tablet by mouth Once per day. 90 tablet 03/07/20 24 025 Discontinued(R eorder (will not trigger notification to Pharmacy)) amLODIPine (Norvasc) 5 MG tabletIndicati ons:Hypertensi on, unspecified type Take 1 tablet (5 mg) by mouth Once per day. 90 tablet 03/07/20 24 025 Discontinued(R eorder (will not trigger notification to Pharmacy)) Buprenorphine HCl-Naloxone HCl (Suboxone) 8-2 MG SL filmIndication s:Uncomplicate d opioid dependence (CMS/HCC) Place 1 Film under the tongue 3 times daily for 21 days. 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 Tobacco use 11/21/2023 Obesity 11/21/2023 History of anemia 09/05/2023 Assessment & Plan (09/07/2023 11:32 AM EDT): Trend labs Hypertension 09/05/2023 Assessment & Plan (11/21/2023 6:33 PM EDT): Repeat BP manually 180/110 today Pt is asymptomatic ,seems chronically uncontrolled BP -EKG today HR 63, QTc 415, noted questionable TWI in inferior leads -to help pt with compliance I am switching today his lisinopril 40 mg and HDCTZ to combination pill of [id number]/HDCTZ 25 daily and start amlodipine 5 mg daily -advised pt to start dose of amlodipine today -encourage pt in length to be compliant w BP meds -advised for low salt diet -advised to decrease/stop tobacco and offered today smoking cessation but pt refusing for now -referred to cards for significant comorbidities and CAD risk ,pt asymptomatic but questionable abnormal EKG -could not obtain previous EKG to compare, continue ASA 81 mg daily -pt has apt w Provider in 11/26/2023 to f BP ,will need chem done then for previous Hood inh and now changed to ARB Assessment & Plan (09/07/2023 11:35 AM EDT): Above goal of <140/<90 today, pt reports taking 2 tablets of 10 mg lisinopril in am with hydrochlorothiazide 25 mg, Continue hydrochlorothiazide 25 mg, increase lisinopril to 40 mg today, Outside work up including EKG, chest x-ray, and blood work wnl, Bp cuff ordered, continue measurements at home Rtc in 3 weeks , consider adding calcium channel cookie if above goal Heart healthy lifestyle reviewed including minimizing sodium, etoh , increasing activity, and mediterranean diet Opioid use disorder in remission 03/02/2023 Assessment & Plan (03/23/2023 2:56 PM EDT): Assessment: Patient presents with depressive and substance use symptoms. No risk for self- harm, SI, HI. Reason for visit was follow up to provide support. Symptoms present in the context of been homeless, unable to stop using heroine/fentanyl, recent stress episode at [facility]. Provided space for him to vent, education about harm reduction and discuss the importance to adhere to treatment. Referral for Ind. Therapy and Medication Management will be submitted. At this time Papo Knapp meets criteria for Visit Diagnoses: Problem List Items Addressed This Visit Other Opioid use disorder Mild depression Homelessness Patient ready to address current needs Yes Strengths include he is in contemplation stage of change on his substance use and is in plan action of change for his MH. PLAN: 1. Follow up with [facility]: Recommended for follow-up: during OBAT appt 2. Patient goal is to improve mental health, obtain housing and get a job 3. Behavioral Recommendations a. Referral to Ind. Therapy will be submitted b. Referral to Medication Management will be submitted c. Discuss further information for detox. Assessment & Plan (03/02/2023 2:53 PM EDT): Assessment: Patient with over sleeping, fatigue, low self esteem, diminished ability to concentrate, nervousness, failed attempt to cut back of heroine, cravings, persistent use despite awareness of problems, and withdrawals. Factors contributing to his sxs are, homelessness, substance use, Hx of incarceration, he reported he relapse after 5 years due to his sister . Patient will benefit from Ind. Therapy, but he declined referral at this time, agreed to follow up with [facility]- during obat appts. At this time Papo Knapp meets criteria for Visit Diagnoses: Problem List Items Addressed This Visit Other Opioid use disorder Mild depression Patient ready to address current needs No Strengths include engage in services at [facility] PLAN: 1. Follow up with [facility]: Recommended for follow-up: 03/16/23 2. Patient goal is to become sober and get housed 3. Behavioral Recommendations a. [facility] follow up b. Remained engage with c. Continue to be connected with bahai of his preference Moderate depressive disorder 03/02/2023 Resolved Problems Problem Noted Date Diagnosed Date Resolved Date Homelessness 03/23/2023 05/02/2024 Encounters * This document contains information received from the source organization and may not represent a complete record from that organization. Date Type Department Care Team Description 07/03/2024 Patient Outreach [address] [address] Jin Mars Recovery Supports 07/02/2024 10:00 AM EST Office Visit [address] [address] Inderjit Bonner MD Opioid dependence, uncomplicated (CMS/HCC) (Primary Dx) 07/02/2024 9:00 AM EST Office Visit [address] [address] Regan Bustillo MD Hypertension, unspecified type (Primary Dx); Vaccine refused by patient; Urticaria, unspecified 07/02/2024 Travel 07/01/2024 Patient Outreach [address] [address] Merrill Espinosa 07/01/2024 Telephone [facility] [address] [place] [address] Renato Fermin, RN 06/30/2024 Patient Outreach [facility] [address] [place] [address] Merrill Espinosa Recovery Supports 06/30/2024 Patient Outreach [facility] [address] [facility] [place] [address] Jin Mars 06/25/2024 Telephone [facility] [address] [place] [address] Renato Fermin, RN Care Management (C3CM- 1st f/u) 06/24/2024 Patient Outreach [facility] [place] [address] Sergio Smart Recovery Supports 06/23/2024 Patient Outreach [facility] [place] [address] Jerad Jin Recovery Supports 06/20/2024 10:15 AM EST Office Visit [facility] [address] Jose Mckeon MD Opioid dependence, uncomplicated (CMS/[facility]) (Primary Dx); Tobacco use disorder 06/20/2024 Travel 06/20/2024 Patient Outreach [facility] [place] [address] Sergio Smart Recovery Supports 06/19/2024 Patient Outreach [facility] [place] [address] MarsJin 06/19/2024 Patient Outreach [facility] [place] [address] Regan Bustillo MD Care Coordination (SDOH) 06/18/2024 Telephone [facility] [place] [address] Renato Fermin, RN Care Management (C3- initial assessment/ enrollment) 06/17/2024 Patient Outreach [facility] [place] [address] Jin Mars 06/17/2024 Patient Outreach [facility] [place] [address] Regan Bustillo MD Care Coordination (CM/CHW appt reminder) 06/13/[address] [address] Ellie Lu, RN Uncomplicated opioid dependence (CMS/HCC) 06/13/[address] [address] Ellie Lu, RN Error (VOID this visit) 06/13/2024 Patient Outreach [address] [address] Will Whelan Recovery Supports 06/12/2024 Patient Outreach [address] [address] Merrill Espinosa Recovery Supports 06/12/2024 Patient Outreach [address] [address] Regan Bustillo MD Care Coordination (CM/CHW outreach) 06/12/2024 Patient Outreach [address] [address] Regan Bustillo MD Care Coordination (CM/CHW outreach) 06/11/2024 9:00 AM EST Office Visit [address] [address] Inderjit Bonner MD Opioid dependence, uncomplicated (CMS/HCC) (Primary Dx) 06/11/2024 Travel 06/10/2024 Patient Outreach [address] [address] Merrill Espinosa Recovery Supports 06/09/2024 Patient Outreach [address] [address] Merrill Espinosa Recovery Supports 06/06/2024 Patient Outreach [address] [address] Regan Bustillo MD Care Coordination (CM/CHW outreach) 06/05/[address] [address] Renato Fermin, PURA Care Management (C3CM- chart review) 06/03/2024 Patient Outreach [address] [address] Sergio Smart [facility] Support Groups 06/02/2024 Patient Outreach [facility] [address] [facility] [place] [address] Merrill Espinosa Recovery Supports 05/30/2024 10:00 AM EST Clinical Support [facility] [place] [address] Yamel Kelly, RN Opioid type dependence, continuous (CMS/HCC) (Primary Dx) 05/30/2024 Patient Outreach [facility] [address] [facility] [place] [address] Will Whelan Recovery Supports 05/30/2024 Travel 05/26/2024 Patient Outreach [address] [address] Saadia Fountain Recovery Supports 05/23/2024 Patient Outreach [address] [address] Merrill Espinosa Recovery Supports 05/23/2024 Patient Outreach [address] [address] Will Whelan Recovery Supp[facility] 05/22/2024 Patient Outreach [address] [address] Saadia Fountain [facility] 05/22/2024 Orders Only [address] [address] Yamel Kelly, RN Opioid dependence, uncomplicated (CMS/HCC) 05/20/2024 Patient Outreach [address] [address] Will Whelan Recovery Supp[facility] 05/15/2024 Patient Outreach [address] [address] Saadia Fountain Recovery Supports 05/13/2024 Patient Outreach [address] [address] Merrill Espinosa Recovery Supports 2024 Patient Outreach [address] [address] Merrill Espinosa Recovery Supports 05/09/2024 11:00 AM EST Clinical Support [address] [address] Yamel Kelly, PURA Opioid dependence, uncomplicated (CMS/HCC) (Primary Dx) 05/09/2024 Patient Outreach [address] [place] [address] Saadia Fountain [facility] Recovery Supports 05/09/2024 Travel 05/08/2024 Patient Outreach [address] [place] [address] Merrill Espinosa RC Recovery Supports 05/08/2024 Patient Outreach [address] [address] Saadia Fountain Recovery Supp[facility] 05/07/2024 10:00 AM EST Office Visit [address] [address] Inderjit Bonner MD Opioid dependence, uncomplicated (CMS/HCC) (Primary Dx) 05/07/[address] [address] Regan Bustillo MD No Show 05/07/2024 Travel 05/06/2024 Patient Outreach [address] [address] Jin Mars Recovery Supp[facility] 05/05/[address] [address] Lima Matthews MA Chart Prep 05/05/2024 Patient Outreach [address] [address] Merrill Espinosa Recovery Supports 05/05/2024 Patient Outreach [address] [address] Will Whelan RC Recovery Supports 05/02/2024 Patient Outreach [address] [address] Jni Mars Recovery Supports 05/02/[address] [address] Yamel Kelly RN Uncomplicated opioid dependence (CMS/HCC) 04/30/2024 9:00 AM EST Clinical Support [address] [address] Ellie Lu, PURA Opioid use disorder, mild, in early remission (CMS/HCC) 04/30/2024 Patient Outreach [facility] [address] Sergio Smart 04/30/2024 Travel 04/29/2024 Patient Outreach [facility] [address] Merrill Espinosa 04/23/2024 9:00 AM EST Clinical Support [facility] [place] [address] Huong Fowler, PURA Opioid use disorder, mild, in early remission (CMS/HCC) 04/23/2024 Travel 04/22/2024 Patient Outreach [facility] [address] Merrill Espinosa 04/21/2024 Patient Outreach [facility] [place] [address] Will Whelan 04/18/2024 10:30 AM EST Clinical Support [facility] [place] [address] Ryanne Acuna RN Opioid dependence, uncomplicated (CMS/HCC) (Primary Dx) 04/18/2024 Patient Outreach [facility] [place] [address] Will Whelan 04/18/2024 Travel 04/17/2024 Patient Outreach [facility] [place] [address] Will Whelan 04/17/2024 Patient Outreach [facility] [place] [address] Merrill Espinosa 04/16/2024 9:00 AM EST Office Visit [facility] [place] [address] Inderjit Bonner MD Opioid dependence, uncomplicated (CMS/HCC) (Primary Dx) 04/16/2024 Travel 04/15/2024 Patient Outreach [facility] [place] [address] Sergio Smart 04/14/2024 Patient Outreach [facility] [place] [address] Saadia Fountain 04/14/2024 Patient Outreach [facility] [address] [place] [address] Merrill Espinosa 04/11/[address] [address] Yamel Kelly RN Uncomplicated opioid dependence (CMS/HCC) 04/09/2024 9:00 AM EST Office Visit [address] [address] Inderjit Bonner MD Opioid dependence, uncomplicated (CMS/HCC) (Primary Dx) 04/09/2024 Travel 04/08/2024 Patient Outreach [address] [address] Sergio Smart 04/07/2024 Patient Outreach [address] [address] Merrill Espinosa 04/04/2024 2:30 PM EST Clinical Support [address] [address] Ellie Lu RN Opioid dependence, uncomplicated (CMS/HCC) (Primary Dx); Tobacco use disorder 04/04/2024 Travel 04/03/2024 Patient Outreach [address] [address] Merrill Espinosa from Last 3 Months Social History Tobacco Use Types Packs/Day Years Used Date Smoking Tobacco: Every Day Cigarettes Smokeless Tobacco: Never Tobacco Cessation:Ready to Q uit: Not Asked; Counseling Given: Not Answered Alcohol Use Standard Drinks/Week Comments Never 0 [...] Orientation Straight 01/31/2023 10 :59 AM EDT Last Filed Vital Signs Vital Sign Reading [...] Mass Index 37.75 07/02/2024 9:15 AM EST Plan of Treatment Upcoming Encounters Date Type Department Care Team (Late st Contact Info) Description 07/10/2024 2:30 PM EST Telemedicine [facility] [address] [place] [address] 07/11/2024 10:00 AM EST Clinical Support [facility] [address] [place] [address] Ellie Lu, RN Health Maintenance Due Date Last Done Comments CT Colonography 1979 Colonoscopy 1979 Colorectal Cancer Screening 1979 FIT DNA/Cologuard 1979 FIT 1979 FOBT 1979 Lipid Panel 1979 Sigmoidoscopy 1979 Family Planning (PISQ) 1994 DTaP/Tdap/Td Vaccines (1 - Tdap) 1998 Hepatitis A Vaccines (1 of 2 - Risk 2-dose series) 1998 Hepatitis B Vaccines (1 of 3 - 19+ 3-dose series) 1998 Pneumococcal Vaccine: Pediatrics (0 to 5 Years) and At-Risk Patients (6 to 49) Years) (1 of 2 - PCV) 1998 COVID-19 Vaccine ( - 2023-2 5 season) 2024 Influenza Vaccine (#1) 2024 Depression Monitoring (PHQ-9) 10/31/2024, 05/02/2024 Alcohol/Substance Use Screening 05/02/2025 05/02/2024 Depression Screening 05/02/2025 05/02/2024, 05/02/2024 SDOH Screening 06/19/2025 06/19/2024 Tobacco Screening 07/02/2025 07/02/2024 Zoster Vaccines (1 of 2) 2029 RSV Patients and Patients Aged 60 years or older (1 - 1-dose 75+ series) 2054 HIV Screening Completed 01/10/2024, 02/02/2023 Hepatitis C Screening Completed 01/10/2024 , 02/02/2023 HIB Vaccines Aged Out No longer eligi ble based on patient's age to complete this topic HPV Vaccines Aged Out No longer eligi ble based on patient's age to complete this topic IPV Vaccines Aged Out No longer eligi ble based on patient's age to complete this topic Meningococcal Vaccine Aged Out No tammi kim eligible based on patient's age to complete this topic RSV under 20 months Aged Out No longe r eligible based on patient's age to complete this topic Rotavirus Vaccines Aged Out No longer eligible based on patient's age to complete this topic Procedures Procedure Name Priority Date/Time Associated Diagnosis Comments POCT JJ-14 URINE DRUG SCREEN Routine 06/20/2024 11:46 AM EST Opioid dependence, uncomplicated (CMS/HCC) POCT JJ-14 URINE DRUG SCREEN Routine 05/30/2024 11:45 AM EST Opioid type dependence, continuous (CMS/HCC) POCT JJ-14 URINE DRUG SCREEN Routine 05/09/2024 11:52 AM EST Opioid dependence, uncomplicated (CMS/HCC) POCT JJ-14 URINE DRUG SCREEN Routine 04/18/2024 11:36 AM EST Opioid dependence, uncomplicated (CMS/HCC) POCT JJ-14 URINE DRUG SCREEN Routine 04/04/2024 2:58 PM EST Opioid dependence, uncomplicated (CMS/HCC) HEPATITIS C AB W/REFL TO HCV RNA, QN, PCR Routine 01/10/2024 2:40 PM EDT Screening for STD (sexually transmitted disease) HIV 1 RNA, QUANTITATIVE REAL TIME PCR Routine 01/10/2024 2:40 PM EDT Screening for STD (sexually transmitted disease) from Last 3 Months or Most Recently Relevant to Health Maintenance Results * POCT JJ-14 Urine Drug Screen (06/20/2024 11:46 AM EST) Only the most recent of5 resultswithin the time period is included. THC Positive Cocaine Screen, Urine Negative Opiate [...] procedure / Unknown 06/20/2024 11:46 AM EST us Jose Mckeon MD POINT OF CARE TEST ENTER/EDIT ORDERABLES Final Result * Hepatitis C Antibody with Reflex to HCV, RNA, Quantitative, Real-Time PCR (01/10/2024 2:40 PM EDT) Hepatitis C Antibody Nonreactive Nonreactive [facility] Comment:Antibodies to HCV no t detected; does not exclude early acuteHCV infection. Blood Venous blood specimen / Unknown 01/10/2024 2:40 PM EDT 01/10/2024 4:03 PM EDT us Regan Bustillo MD LAB BLOOD ORDERABLES Final Resul t Performing Organization Address [facility] Co de Phone Number [facility] [address] [place] [phone] * HIV-1 RNA, Quantitative, Real-Time PCR (01/10/2024 2:40 PM EDT) HIV RNA PCR Qn Copies TNP copies/mL [facility] Comment:TEST NOT PERFORMEDQu antity not sufficient.THIS TEST WAS PERFORMED AT:[employer] [place] [id number] COURTNEY MD HIV RNA PCR Qn Log Copies TNP [facility] Blood Venous blood specimen / Unknown 01/10/2024 2:40 PM EDT 01/10/2024 4:03 PM EDT us Regan Bustillo MD LAB BLOOD ORDERABLES Final Resul t Performing Organization Address City/[facility]/ZIP Co de Phone Number [facility] [address] [place] [phone] from Last 3 Months or Most Recently Relevant to Health Maintenance Insurance [facility] C3 HSN FULL Care Teams Netezza Developer Relationship Specialty Start Date End Date Name, MD Regan [address] [place] [phone] PCP - General Internal Medicine 11/26/23 Renato Fermin RN [address] [place] [phone] House NurseNuclear Instructor 06/18/24
--- OUTSIDE RECORDS SUMMARY | 2024-07-04 13:03 | XMS_ITS | Encounter Summary ---
Author Organization [employer] Address [address] 7[address] [place] [address] Care Team Providers Care Floor Care Technician Name Role Phone Name, Regan ORTEGA Primary Care Provider [phone] Reason for Visit * Reason Comments Care Coordination CM/CHW outreach Encounter Details Date Type Department Care Team (Latest Contact Info) Description 06/12/2024 Patient Outreach [facility] [address] [place] [address] Name, MD Regan [address] [place] [address] Care Coordination (CM/CHW outreach) Social History Tobacco Use Types Packs/Day Years [...] with others, in a hotel, in a custodial, living outside on the street, on a [...] encounter Progress Notes * Tsering Cisneros - 06/12/2024 1:21 PM EST CHW Tsering Cisneros, met with patient introducing herself from [facility] CM Department, in regard to offering services. Patient's name and was confirmed. Patient agrees to participate in program. Appt. for initial assessment scheduled for 06/18/24 @ 1PM in person with CM Renato Fermin RN. CHW reinforced direct contact information or CM for any additional questions or concerns and extended clinic hours on Mondays and Wednesdays, and Walk-In Urgent Care Located in [facility] of [facility]. Patient provided with after-hours line for [facility], , which offer nighttime triage service and option to transfer to credit card control clerk provider if needed. Patient verbalizes understanding, and able to repeat back to health science writer. documented in this encounter Plan of Treatment Upcoming Encounters Date Type Department Care Team (Late st Contact Info) Description 07/10/2024 2:30 PM EST Telemedicine [facility] [place] [address] 07/11/2024 10:00 AM EST Clinical Support [facility] [place] [address] Ellie Lu, PURA documented as of this encounter Visit Diagnoses Not on filedocumented in this encounter Additional Health Concerns Assessment Noted Time PHQ-9 Depression Total Score: 11 024 3:17 PM EST documented as of this encounter Care Teams Floor Care Technician Relationship Specialty Start Date End Date Name, MD Regan [facility] [place] [address] PCP - General Internal Medicine 11/26/23 documented as of this encounter
--- OUTSIDE RECORDS SUMMARY | 2024-07-04 13:03 | XMS_ITS | Encounter Summary ---
Author Organization [employer] Address [address] [place] [address] Care Team Providers Care Hangar Attendant Name Role Phone Name, Regan ORTEGA Primary Care Provider Reason for Visit * Reason Comments Recovery Supports Encounter Details Date Type Department Care Team ([facility] st Contact Info) Description 06/09/2024 Patient Outreach [facility] MEDICINE [address] [place] [address] Merrill Espinosa [address] [place] [address] Recovery Supports Social History Tobacco Use Types [...] with others, in a hotel, in a penitentiary, living outside on the street, on a [...] encounter Progress Notes * Merrill Espinosa - 06/09/2024 4:47 PM EST I met with Papo cazares. Setting: in person at [facility] Recovery Wellness Goals worked on: Physical Health/Mental [...] Info) Description 07/10/2024 2:30 PM EST Telemedicine [facility] MEDICINE [address] [place] [phone] 07/11/2024 10:00 AM EST Clinical Support [facility] MEDICINE [address] [place] [phone] Ellie Lu RN documented as of this encounter Visit Diagnoses Not on filedocumented in this encounter Additional Health Concerns Assessment Noted Time PHQ-9 Depression Total Score: 11 024 3:17 PM EST documented as of this encounter Care Teams Hangar Attendant Relationship Specialty Start Date End Date Name, MD Regan [address] [place] [address] PCP - General Internal Medicine 11/26/23 documented as of this encounter
--- OUTSIDE RECORDS SUMMARY | 2024-07-04 13:03 | XMS_ITS | Encounter Summary ---
Author Organization [employer] Address [address] [place] [address] Care Team Providers Care Park Maintenance Technician Name Role Phone Name, Regan ORTEGA Primary Care Provider [phone] Reason for Visit * Reason Comments Care Coordination CM/CHW outreach Encounter Details Date Type Department Care Team (Latest Contact Info) Description 06/06/2024 Patient Outreach [facility] MEDICINE [address] [place] [address] Name, MD Regan [address] [place] [address] Care Coordination (CM/CHW outreach) Social History Tobacco [...] with others, in a hotel, in a prison, living outside on the street, on a [...] encounter Progress Notes * Tsering Cisneros - 06/06/2024 12:55 PM EST CHW Tsering Cisneros, placed outbound call to patient in regards to offer Adult Complex Care Program and SDOH services. No answer at this time. CHW LVM introducing herself from [facility] CMDepartment with CHW's name, department and direct contact number requesting call back. Will re-attempt to contact within 5 days. and address not confirmed documented in this encounter Plan of Treatment Upcoming Encounters Date Type Department Care Team (Late st Contact Info) Description 07/10/2024 2:30 PM EST Telemedicine [facility] MEDICINE [address] [place] [phone] 07/11/2024 10:00 AM EST Clinical Support [facility] MEDICINE [address] [place] [address] Ellie Lu, RN documented as of this encounter Visit Diagnoses Not on filedocumented in this encounter Additional Health Concerns Assessment Noted Time PHQ-9 Depression Total Score: 11 024 3:17 PM EST documented as of this encounter Care Teams Park Maintenance Technician Relationship Specialty Start Date End Date Name, MD Regan [address] [place] [address] PCP - General Internal Medicine 11/26/23 documented as of this encounter
--- OUTSIDE RECORDS SUMMARY | 2024-07-04 13:03 | XMS_ITS | Encounter Summary ---
Author Organization [employer] [facility] Address [address] [place] [address] Care Team Providers Care Retail Experience Specialist Name Role Phone Name, Regan ORTEGA Primary Care Provider [phone] Reason for Visit * Reason Comments Recovery Supports Encounter Details Date Type Department Care Team ([facility] st Contact Info) Description 06/13/2024 Patient Outreach [facility] MEDICINE [address] [place] [address] Will Whelan Recovery Supports Social History Tobacco Use Types [...] with others, in a hotel, in a correction, living outside on the street, on a [...] as of this encounter Progress Notes * Will Whelan - 06/13/2024 1:58 PM EST I met with Papo cazares. Setting: in person at [facility] Recovery Wellness Goals worked on: Physical Health/Mental Health and Social Stability Action taken/next steps: Offered person centered recovery support and Attended alcohol and drug free activity Additional comments: PARTICIPANT STILL WORKING ON HIS JOURNEY IN RECOVER.RECOVERY ENCOURAGE HIM KEEP ON WORKING ON THE JOURNEY OF RECOVERY Will Whelan documented in this encounter Plan of Treatment Upcoming Encounters Date Type Department Care Team (Late st Contact Info) Description 07/10/2024 2:30 PM EST Telemedicine [facility] MEDICINE [address] [place] [phone] 07/11/2024 10:00 AM EST Clinical Support [facility] MEDICINE [address] [place] [phone] Ellie Lu, PURA documented as of this encounter Visit Diagnoses Not on filedocumented in this encounter Additional Health Concerns Assessment Noted Time PHQ-9 Depression Total Score: 11 024 3:17 PM EST documented as of this encounter Care Teams Retail Experience Specialist Relationship Specialty Start Date End Date Name, MD Regan [address] [place] [address] PCP - General Internal Medicine 11/26/23 documented as of this encounter
--- OUTSIDE RECORDS SUMMARY | 2024-07-04 13:03 | XMS_ITS | Encounter Summary ---
Author Organization [employer] [facility] Address [address] 7[address] [place] [address] Care Team Providers Care Barber Apprentice Name Role Phone Name, Regan ORTEGA Primary Care Provider [phone] Reason for Visit * Reason Comments Recovery Supports Encounter Details Date Type Department Care Team ([facility] st Contact Info) Description 06/10/2024 Patient Outreach [facility] MEDICINE [address] [place] [address] Merrill Espinosa [address] [place] [address] Recovery Supports Social History Tobacco Use Types [...] encounter Progress Notes * Merrill Espinosa - 06/10/2024 4:19 PM EST I met with Papo cazares. Setting: in person at [facility] Recovery Wellness Goals worked on: Physical Health/Mental Health and Social Stability Action taken/next steps: Attended recovery support group Additional comments: Participant attended a group session centered on recovery topics, where members engaged in open discussion and offered mutual support Merrill Espinosa documented in this encounter Plan of Treatment Upcoming Encounters Date Type Department Care Team (Late st Contact Info) Description 07/10/2024 2:30 PM EST Telemedicine [facility] MEDICINE [address] [place] [phone] 07/11/2024 10:00 AM EST Clinical Support [facility] MEDICINE [address] [place] [phone] Ellie Lu, RN documented as of this encounter Visit Diagnoses Not on filedocumented in this encounter Additional Health Concerns Assessment Noted Time PHQ-9 Depression Total Score: 11 024 3:17 PM EST documented as of this encounter Care Teams Barber Apprentice Relationship Specialty Start Date End Date Name, MD Regan [address] [place] [address] PCP - General Internal Medicine 11/26/23 documented as of this encounter
--- OUTSIDE RECORDS SUMMARY | 2024-07-04 13:03 | XMS_ITS | Encounter Summary ---
Author Organization [employer] [facility] Address [address] 7[address] [place] [address] Care Team Providers Care Private Secretary Name Role Phone Name, Regan ORTEGA Primary Care Provider [phone] Renato Fermin RN Unavailable [phone] Encounter Details Date Type Department Care Team (Late st Contact Info) Description 03/21/2024 Orders Only [facility] MEDICINE [address] [place] [address] Yamel Kelly RN Opioid dependence, uncomplicated (CMS/HCC) (Primary Dx) Social History Tobacco Use Types Packs/Day Years Used Date Smoking Tobacco: Every Day Cigarettes Smokeless Tobacco: Never Alcohol Use Standard Drinks/Week Comments Never 0 (1 standard drink = 0.6 oz pur e alcohol) Alcohol Answer Date Recorded How often do you have a drink containing alcohol ? 2 01/14/2024 How many drinks containing a lcohol do you have on a typical day when you are drinking? 1 01/14/2024 How often do you have six or more drinks on one occasion? 2 01/14/2024 Depression Answer Date Recorded Patient Health Questionnaire-9 Score 14 02/29/2024 Patient Health Questionnaire-9 Score 14 02/29/2024 Last PHQ-9: Questionnaire Data Not on file 1 Housing Stability Answer Date Recorded What is your housing situation today? I do not have housing (Staying with others, in a hotel, in a senior care, living outside on the street, on a [...] the past 12 months, has t he [employer], gas, oil or water [employer] threatened to shut off services in your home? I am not sure 03/12/2023 Depression Answer Date Recorded Patient Health Questionnaire-2 Score 1 02/29/2024 Sex and Gender Information Value Date Recorded Sex Assigned at Male 01/31/2023 10:59 AM EDT Legal Sex Male 2:59 PM EDT Gender Identity Male 01/31/2023 10:59 AM EDT Sexual Orientation Straight 01/31/2023 10 :59 AM EDT documented as of this encounter Plan of Treatment Upcoming Encounters Date Type Department Care Team (Late st Contact Info) Description 07/10/2024 2:30 PM EST Telemedicine [facility] MEDICINE [address] [place] [phone] 07/11/2024 10:00 AM EST Clinical Support [address] [address] Ellie Lu, RN documented as of this encounter Procedures Procedure Name Priority Date/Time Associated Diagnosis Comments POCT JJ-14 URINE DRUG SCREEN Routine 03/21/2024 1:41 PM EDT Opioid dependence, uncomplicated (CMS/HCC) documented in this encounter Results * POCT JJ-14 Urine Drug Screen (03/21/2024 1:41 PM EDT) Urine Urine specimen obtained by clean catch procedure / Unknown 03/21/2024 1:41 PM EDT Jose Mckeon MD POINT OF CARE TEST ENTER/EDIT ORDERABLES Final Result documented in this encounter Visit Diagnoses Diagnosis Opioid dependence, uncomplicated (CMS/HCC)- Primary documented in this encounter Additional Health Concerns Assessment Noted Time PHQ-9 Depression Total Score: 14 024 3:38 PM EDT documented as of this encounter Care Teams Private Secretary Relationship Specialty Start Date End Date Name, MD Regan [address] [place] [address] PCP - General Internal Medicine 11/26/23 Renato Fermin RN [address] [place] [address] [employer] Trans[employer] 06/18/24 documented as of this encounter
--- OUTSIDE RECORDS SUMMARY | 2024-07-04 13:03 | XMS_ITS | Encounter Summary ---
Author Organization [employer] Address [address] [place] [address] Care Team Providers Care Warehouse Laborer Name Role Phone Name, Regan ORTEGA Primary Care Provider Reason for Visit * Reason Comments Care Coordination CM/CHW outreach Encounter Details Date Type Department Care Team (Latest Contact Info) Description 06/12/2024 Patient Outreach [facility] MEDICINE [address] [place] [address] Name, MD Regan [address] [place] [address] Care Coordination (CM/CHW outreach) Social History Tobacco [...] with others, in a hotel, in a mcc, living outside on the street, on a [...] Progress Notes * Tsering Cisneros - 06/12/2024 11:20 AM EST CHW Tsering Cisneros placed outbound call to patient to introduce complex care program. No answer at this time and unable to LVM. and address not verified. Will attempt again in 5 business days. documented in this encounter Plan of Treatment Upcoming Encounters Date Type Department Care Team (Late st Contact Info) Description 07/10/2024 2:30 PM EST Telemedicine [facility] MEDICINE [address] [place] [phone] 07/11/2024 10:00 AM EST Clinical Support [address] [address] Ellie Lu, RN documented as of this encounter Visit Diagnoses Not on filedocumented in this encounter Additional Health Concerns Assessment Noted Time PHQ-9 Depression Total Score: 11 024 3:17 PM EST documented as of this encounter Care Teams Warehouse Laborer Relationship Specialty Start Date End Date Name, MD Regan [address] [place] [address] PCP - General Internal Medicine 11/26/23 documented as of this encounter
--- OUTSIDE RECORDS SUMMARY | 2024-07-04 13:03 | XMS_ITS | Encounter Summary ---
Author Organization [employer] Address [address] [place] [address] Care Team Providers Care Chief Hydroelectric Station Operator Name Role Phone Name, Regan ORTEGA Primary Care Provider [phone] Reason for Visit * Reason Onset Date Comments Care Management 06/05/2024 [facility]- chart revi ew Encounter Details Date Type Department Care Team ([facility] st Contact Info) Description 06/05/2024 Telephone [facility] MEDICINE [address] [place] [address] Renato Fermin RN [address] [place] [address] Care Management ([facility]- chart review) Social History Tobacco Use Types Packs/Day Years [...] with others, in a hotel, in a long-term, living outside on the street, on a [...] Telephone Encounter - Renato Fermin RN - 06/05/2024 10:30 AM EST SHOAIB Fermin RN, performed chart review, in anticipation of initial assessment with patient, as patient has stratified for C3 Adult Complex Care through the ADT feed. History significant for HTN, opioid use disorder, moderate depressive disorder, anemia, tobacco use, prolonged grief disorder, alcohol use, and anxiety. Specialists include Behavioral Health. Patient seen at [facility] on 06/04/24 Dxallergic reaction. Last appointment in PCP office on 05/30/24 with [facility]. Next appointment scheduled for 06/06/24 at 3:00pm with Behavioral Health and 06/20/24 at 10:15am with [facility]. documented in this encounter Plan of Treatment Upcoming Encounters Date Type Department Care Team (Late st Contact Info) Description 07/10/2024 2:30 PM EST Telemedicine [facility] MEDICINE [address] [place] [address] 07/11/2024 10:00 AM EST Clinical Support [facility]INE [address] [facility] [place] [address] Ellie Lu, PURA documented as of this encounter Visit Diagnoses Not on filedocumented in this encounter Additional Health Concerns Assessment Noted Time PHQ-9 Depression Total Score: 11 024 3:17 PM EST documented as of this encounter Care Teams Chief Hydroelectric Station Operator Relationship Specialty Start Date End Date Name, MD Regan [address] [facility] [place] [address] PCP - General Internal Medicine 11/26/23 documented as of this encounter
--- OUTSIDE RECORDS SUMMARY | 2024-07-04 13:03 | XMS_ITS | Encounter Summary ---
Author Organization [employer] [facility] Address [address] [place] [address] Care Team Providers Care Telemetry Rn Name Role Phone Name, Regan ORTEGA Primary Care Provider [phone] Encounter Details Date Type Department Care Team (Latest Contact Info) Description 06/11/2024 Travel Social History Tobacco Use Types Packs/Day [...] Info) Description 07/10/2024 2:30 PM EST Telemedicine [address] [address] 07/11/2024 10:00 AM EST Clinical Support [address] [address] Ellie Lu, RN documented as of this encounter Visit Diagnoses Not on filedocumented in this encounter Additional Health Concerns Assessment Noted Time PHQ-9 Depression Total Score: 11 024 3:17 PM EST documented as of this encounter Care Teams Telemetry Rn Relationship Specialty Start Date End Date Name, MD Regan [address] [place] [address] PCP - General Internal Medicine 11/26/23 documented as of this encounter
[2024-07-04 14:04] LABS: Alanine Aminotransferase 18 U/L (0-40); Albumin Level 4.2 g/dL (3.5-5.0); Alkaline Phosphatase 67 U/L (39-117); Anion Gap 13 (12-20); Aspartate Amino Transferase 24 U/L (5-37); Bilirubin Direct 0.2 mg/dL (0.0-0.5); Bilirubin Total 0.7 mg/dL (0.0-1.0); Blood Urea Nitrogen 14 mg/dL (9-16); Calcium 8.9 mg/dL (8.4-10.2); Carbon Dioxide 24 mmol/L (22-29); Chloride 105 mmol/L (96-108); Cholesterol 183 mg/dL (<200); Estimated Glomerular Filt Rate > 60; Glucose Random 105 mg/dL (60-115); HDL Cholesterol 37 mg/dL (>40); LDL Cholesterol Calculated 123 mg/dL (<100); Potassium 3.6 mmol/L (3.3-5.1); Sodium 138 mmol/L (135-145); Total Protein 7.8 g/dL (6.5-8.0); Triglycerides 119 mg/dL (<150)
[2024-07-04 14:16] LABS: HIV AB/AG Nonreactive (Nonreactive); HIV Num 1 0.06 S/CO (0.00-0.99); Syphilis Screen Nonreactive (Nonreactive); ~HepC Num1 0.15 S/CO (0.00-0.79); ~Hepatitis C Antibody Nonreactive (Nonreactive)
[2024-07-04 14:17] LABS: HBc Num1 0.27 S/CO (0.00-0.79); Hepatitis B Core Antibody Nonreactive (Nonreactive)
[2024-07-07 11:18] LABS: RPR Rapid Plasma Reagin NON-REACTIVE (NON-REACTIVE)
[2024-07-07 16:38] LABS: TS Negative Control Passed; TS Panel A 0; TS Panel B 0; TS Positive Control Passed; TSpotTB Negative (Negative)
== END 2024-07-04 11:59 | disposition home or self-care (01) ==
LOC: HO.HHCL 11:58
PROVIDERS: Emergency Medicine; Visit Provider Internal Medicine Geriatric Medicine
DX: F11.20 Opioid dependence, uncomplicated (principal); A54.9 Gonococcal infection, unspecified; I10 Essential (primary) hypertension
CPT/HCPCS: 36415; 80053; 80061; 80076; 82248; 86481; 86592; 86704; 86780; 86803; 87389